=== PATIENT | female | born 1990 | race Two or more races ===

== ENCOUNTER 2018-12-01 16:14 | Inpatient (IN) | payer SELFPAY ==
[~2018-12-01] VITALS: Ht 160 cm; Wt 54.6 kg
[2018-12-01] MEDS ORDERED: ONDANSETRON PF 4 MG/2 ML VIAL. IV ONE ×2 (16:30→18:15)
[2018-12-01] MEDS ORDERED: IV NORMAL SALINE 1000ML BAG 1,000 ML IV SCH (16:30)
[2018-12-01 16:44] LABS: BASO # 0.1 x10^3/uL (0.0-0.2); BASO % 1 % (0-3); EOS # 0.1 x10^3/uL (0.0-0.7); EOS % 1 % (0-3); HEMATOCRIT 43.8 % (36.0-47.0); LYMPH # 3.9 x10^3/uL (1.0-4.8); LYMPH % 42 % (24-48); MEAN CORPUSCULAR HEMOGLOBIN 33 pg (25-35); MEAN CORPUSCULAR HGB CONC 34 g/dL (31-37); MEAN CORPUSCULAR VOLUME 95 fL (79-100); MONO # 0.7 x10^3/uL (0.0-1.1); MONO % 8 % (0-9); NEUT # 4.6 x10^3uL (1.8-7.7); NEUT % 49 % (31-73); PLATELET COUNT 282 x10^3/uL (140-400); RED CELL DISTRIBUTION WIDTH 13.2 % (11.5-14.5); WHITE BLOOD COUNT 9.4 x10^3/uL (4.0-11.0)
[2018-12-01 16:52] LABS: CREATININE 0.5 mg/dL (0.6-1.0); GFR 145.9
[2018-12-01 16:54] LABS: PROTHROMBIN TIME PATIENT 12.3 SEC (11.7-14.0)
[2018-12-01 16:58] LABS: ALBUMIN 4.2 g/dL (3.4-5.0); DIRECT BILIRUBIN 0.3 mg/dL (0.0-0.2); TOTAL PROTEIN 7.7 g/dL (6.4-8.2)
[2018-12-01 17:03] LABS: ACETAMIN < 2 mcg/ml (10-30); ETHANOL 310 mg/dL (0-10); SALIC < 2.8 mg/dL (2.8-20.0)
[2018-12-01 17:05] LABS: BILIRUBIN,URINE NEGATIVE (NEG); CLARITY,URINE CLEAR; NITRITE,URINE NEGATIVE (NEG); PROTEIN,URINE NEGATIVE (NEG-TRACE); UROBILINOGEN,URINE 0.2 mg/dL (0.2 mg/dL)
[2018-12-01 17:08] LABS: AMPHETAMINE/METHAMPHETAMINE NEG (NEG); BARBITURATES NEG (NEG); BENZODIAZEPINES NEG (NEG); CANNABINOIDS NEG (NEG); COCAINE NEG (NEG); METHADONE NEG (NEG); OPIATES NEG (NEG); PHENCYCLIDINE NEG (NEG)
[2018-12-01 17:09] LABS: COLOR,URINE STRAW
[2018-12-01 17:11] LABS: BACTERIA,URINE FEW /HPF (0-FEW); RBC,URINE RARE /HPF (0-2); SQUAMOUS EPITHELIAL CELL,UR MOD /LPF; WBC,URINE 0 /HPF (0-4)
[2018-12-01] MEDS ORDERED: ONDANSETRON ODT 4 MG TAB.RAPDIS. PO ONE (18:15)
--- NOTE | 2018-12-01 18:15 | PHYS DOC ---
Past Medical History Past Medical History: Anxiety, Arthritis, Bipolar, Depression, Schizophrenia (ALIYA PERKINS MD) Past Surgical History: No Surgical History (ALIYA PERKINS MD) Alcohol Use: Occasionally Drug Use: None (ALIYA PERKINS MD) Adult General Chief Complaint Chief Complaint: CHEST PAIN HPI HPI Patient is a 28 year old female who is in by EMS because of alcohol intoxication and chest pain. Patient is intoxicated and unable to give history and complaining of chest pain frequently. (ALIYA PERKINS MD) Review of Systems Review of Systems Unable to obtain because of alcohol intoxication (ALIYA PERKINS MD) Current Medications Current Medications Current Medications Medications (Trade) Dose Ordered Sig/Hannah Start Time Stop Time Status Last Admin Dose Admin Clonazepam (KlonoPIN) 1 mg 1X ONCE 12/01/18 21:30 12/01/18 21:31 Famotidine (Pepcid Vial) 20 mg 1X ONCE 12/01/18 18:45 12/01/18 18:46 DC 12/01/18 18:21 20 MG Ketorolac Tromethamine (Toradol 15mg Vial) 15 mg 1X ONCE 12/01/18 19:45 12/01/18 19:46 DC 12/01/18 19:13 15 MG Lorazepam (Ativan) 1 mg 1X ONCE 12/01/18 20:45 12/01/18 20:46 DC 12/01/18 20:29 1 MG Multi-Ingredient Mouthwash/Gargle (Gi Cocktail) 20 ml 1X ONCE 12/01/18 20:30 12/01/18 20:31 DC 12/01/18 20:16 20 ML Ondansetron HCl (Zofran Odt) 4 mg 1X ONCE 12/01/18 18:15 12/01/18 18:16 DC Ondansetron HCl (Zofran) 4 mg 1X ONCE 12/01/18 18:15 12/01/18 18:16 DC 12/01/18 18:03 4 MG Potassium Chloride (KCl Oral Soln) 40 meq 1X ONCE 12/01/18 20:45 12/01/18 20:46 DC 12/01/18 20:31 40 MEQ Sodium Chloride 1,000 ml @ 1,000 mls/hr Q1H 12/01/18 16:30 12/01/18 17:29 DC 12/01/18 16:54 1,000 MLS/HR (KATHARINE CARTER MD) Allergies Allergies Allergies Coded Allergies Type Severity Reaction Last Updated Verified No Known Drug Allergies 12/01/18 No (KATHARINE CARTER MD) Physical Exam Physical Exam Constitutional: Well nourished, moderate distress, non-toxic appearance, intoxicated, strong smell of alcohol on breath, agitated and uncooperative. [] HENT: Normocephalic, atraumatic Eyes: PERRLA, EOMI, conjunctiva normal, no discharge. [] Neck: Normal range of motion, no tenderness, supple, no stridor. [] Cardiovascular: Tachycardia, no murmur [] Lungs & Thorax: Bilateral breath sounds clear to auscultation [] Abdomen: Bowel sounds normal, soft, no tenderness, no masses, no pulsatile masses. [] Skin: Warm, dry, no erythema, no rash. [] Extremities: No tenderness, no cyanosis, no clubbing, ROM intact, no edema. [] Neurologic: Alert, moves all extremities, limited exam because of uncooperative and intoxicated patient Psychologic: Affect is agitated (ALIYA PERKINS MD) Current Patient Data Vital Signs Vital Signs Date Time Temp Pulse Resp B/P (MAP) Pulse Ox O2 Delivery O2 Flow Rate FiO2 12/01/18 18:18 96 18 114/74 (87) 96 Room Air 12/01/18 16:14 98.1 98.1 (KATHARINE CARTER MD) Lab Values Laboratory Tests Test 12/01/18 16:31 12/01/18 16:45 12/01/18 16:56 White Blood Count 9.4 x10^3/uL (4.0-11.0) Red Blood Count 4.60 x10^6/uL (3.50-5.40) Hemoglobin 15.0 g/dL (12.0-15.5) Hematocrit 43.8 % (36.0-47.0) Mean Corpuscular Volume 95 fL (79-100) Mean Corpuscular Hemoglobin 33 pg (25-35) Mean Corpuscular Hemoglobin Concent 34 g/dL (31-37) Red Cell Distribution Width 13.2 % (11.5-14.5) Platelet Count 282 x10^3/uL (140-400) Neutrophils (%) (Auto) 49 % (31-73) Lymphocytes (%) (Auto) 42 % (24-48) Monocytes (%) (Auto) 8 % (0-9) Eosinophils (%) (Auto) 1 % (0-3) Basophils (%) (Auto) 1 % (0-3) Neutrophils # (Auto) 4.6 x10^3uL (1.8-7.7) Lymphocytes # (Auto) 3.9 x10^3/uL (1.0-4.8) Monocytes # (Auto) 0.7 x10^3/uL (0.0-1.1) Eosinophils # (Auto) 0.1 x10^3/uL (0.0-0.7) Basophils # (Auto) 0.1 x10^3/uL (0.0-0.2) Prothrombin Time 12.3 SEC (11.7-14.0) Prothrombin Time INR 0.9 (0.8-1.1) Sodium Level 138 mmol/L (136-145) Potassium Level 3.0 mmol/L (3.5-5.1) L Chloride Level 98 mmol/L (98-107) Carbon Dioxide Level 24 mmol/L (21-32) Anion Gap 16 (6-14) H Blood Urea Nitrogen 10 mg/dL (7-20) Creatinine 0.5 mg/dL (0.6-1.0) L Estimated GFR (Cockcroft-Gault) 145.9 Glucose Level 158 mg/dL (70-99) H Calcium Level 9.0 mg/dL (8.5-10.1) Magnesium Level 2.0 mg/dL (1.8-2.4) Total Bilirubin 1.0 mg/dL (0.2-1.0) Direct Bilirubin 0.3 mg/dL (0.0-0.2) H Aspartate Amino Transferase (AST) 37 U/L (15-37) Alanine Aminotransferase (ALT) 32 U/L (14-59) Alkaline Phosphatase 87 U/L (46-116) Creatine Kinase 62 U/L (26-192) Troponin I Quantitative < 0.017 ng/mL (0.000-0.055) Total Protein 7.7 g/dL (6.4-8.2) Albumin 4.2 g/dL (3.4-5.0) Lipase 123 U/L (73-393) Salicylates Level < 2.8 mg/dL (2.8-20.0) L Salicylate Last Dose Date Unk Salicylate Last Dose Time Unk Acetaminophen Level < 2 mcg/ml (10-30) L Acetaminophen Last Dose Date Unk Acetaminophen Last Dose Time Unk Ethyl Alcohol Level 310 mg/dL (0-10) H Urine Collection Type Void Urine Color Straw Urine Clarity Clear Urine pH 7.0 Urine Specific [place] <=1.005 Urine Protein Negative mg/dL (NEG-TRACE) Urine Glucose (UA) Negative mg/dL (NEG) Urine Ketones (Stick) Negative mg/dL (NEG) Urine Blood Trace (NEG) Urine Nitrite Negative (NEG) Urine Bilirubin Negative (NEG) Urine Urobilinogen Dipstick 0.2 mg/dL (0.2 mg/dL) Urine Leukocyte Esterase Negative (NEG) Urine RBC Rare /HPF (0-2) Urine WBC 0 /HPF (0-4) Urine Squamous Epithelial Cells Mod /LPF Urine Bacteria Few /HPF (0-FEW) Urine Opiates Screen Neg (NEG) Urine Methadone Screen Neg (NEG) Urine Barbiturates Neg (NEG) Urine Phencyclidine Screen Neg (NEG) Urine Amphetamine/Methamphetamine Neg (NEG) Urine Benzodiazepines Screen Neg (NEG) Urine Cocaine Screen Neg (NEG) Urine Cannabinoids Screen Neg (NEG) Urine Ethyl Alcohol Pos (NEG) POC Urine HCG, Qualitative Hcg negative (Negative) Laboratory Tests 12/01/18 16:31 Laboratory Tests 12/01/18 16:31 (KATHARINE CARTER MD) EKG EKG EKG interpreted by me. EKG at 1617 shows sinus tachycardia at rate of 122, no acute ST and T-wave abnormalities. (ALIYA PERKINS MD) Radiology/Procedures Radiology/Procedures [] (ALIYA PERKINS MD) Course & Med Decision Making Course & Med Decision Making Pertinent Labs reviewed. (See chart for details) Evaluation of patient in ER showed 28-year-old male patient brought in because of chest pain and alcohol intoxication. Patient was intoxicated and agitated and uncooperative. I offered the patient hospitalization because of blood alcohol of more than 300 and patient refused. Plan to keep patient in ER for sobering the Sign out given to Dr. Carter at 1800 for further evaluation and final disposition. Discussed current findings and plan with patient and family, who acknowledge understanding and agreement. (ALIYA PERKINS MD) Course & Med Decision Making RAUL: I OBSERVED PT FOR SEVERAL HOURS. INITAILLY SHE DIDNT WANT TO STAY NOTED ABOVE. WAS BECOMING MORE TREMULOUS HR UP TO 120 AT TIMES, SHE REPORTS A HISTORY OF ALCHOOL WITHDRAWAL AND SEIZURES IN THE PAST. I BELIEVE SHE MAY BE HAVING SOME ETOH W/D . SHE DDI FINALLY AGREE TO STAY IN HOSPITAL . ADMIT TO CHAO, ORDERS FOR CIWA PROTOCOL ETC. RE: CHEST PAIN, BURNING PAIN ABDOMEN NONTENDER, GIVEN GI COCKTAIL, TORADOL AND ASPIRIN. CXR/TROP NEG. EKG NONSPECIFIC LIKELY RELATED TO HYPOKALEMIA NO DEFINITE ISCHEMIA IDENTIFIED. PT IS LOW RISK. (KATHARINE CARTER MD) Dragon Disclaimer Dragon Disclaimer This electronic medical record was generated, in whole or in part, using a voice recognition dictation system. (ALIYA PERKINS MD) Departure Departure Impression: Primary Impression: Alcohol intoxication Additional Impressions: Chest pain Hypokalemia Disposition: 09 ADMITTED INPATIENT Admitting Physician: Dayne Heck (KATHARINE CARTER MD) Condition: STABLE Referrals: NO PCP (PCP) Problem Qualifiers Primary Impression: Alcohol intoxication Complication of substance-induced condition: with unspecified complication Qualified Codes: F10.929 - Alcohol use, unspecified with intoxication, unspecified Additional Impressions: Chest pain Chest pain type: unspecified Qualified Codes: R07.9 - Chest pain, unspecified ALIYA PERKINS MD Dec 01, 2018 18:15 KATHARINE CARTER MD Dec 01, 2018 21:29
[2018-12-01] MEDS ORDERED: FAMOTIDINE 20 MG/2 ML VIAL IVP ONE (18:45)
[2018-12-01] MEDS ORDERED: KETOROLAC 15 MG/ML VIAL. IV ONE (19:45)
[2018-12-01] MEDS ORDERED: LIDO:MAALOX 1:1 20 ML SINGLE DOSE. SWSW ONE (20:30)
[2018-12-01] MEDS ORDERED: POTASSIUM CHLORIDE 20 MEQ/15 ML ORAL LIQUID. PO ONE (20:45)
[2018-12-01] MEDS ORDERED: diphenhydrAMINE 50 MG/ML VIAL IVP PRN (21:30)
[2018-12-01] MEDS ORDERED: clonazePAM 0.5 MG TABLET PO ONE (21:30)
[2018-12-01] MEDS ORDERED: cloNIDine HCL 0.1 MG TABLET PO PRN (21:30)
[2018-12-01] MEDS: MULTIVIT INFUSN,ADULT 4,VIT K 10 ML, THIAMINE INJ 100 MG, FOLIC ACID INJ 1 MG in IV NOR... IV SCH (21:48)
[2018-12-01 23:47] VITALS: BP 120/79
[2018-12-02] MEDS: MULTIVIT INFUSN,ADULT 4,VIT K 10 ML, THIAMINE INJ 100 MG, FOLIC ACID INJ 1 MG in IV NOR... IV SCH (00:30)
[2018-12-02] MEDS: HYDROcodone/APAP 5/325MG 1 TAB TABLET PO PRN ×2 (00:30→07:36)
[2018-12-02 03:10] VITALS: BP 127/83
[2018-12-02] MEDS: ONDANSETRON PF 4 MG/2 ML VIAL. IV PRN ×3 (06:27→14:19)
[2018-12-02 07:00] VITALS: BP 129/78
--- NOTE | 2018-12-02 07:38 | EKG ---
[facility] [address] [place] [address] Test Date: 2018-12-01 Test Time: 16:17:35 Pat Name: MOSES HINKLE Department: Room: 261 1 Gender: F Chief Writer: : 1990 Requested By: ALIYA PERKINS Order Number: [id number] Reading MD: Mehul Paul MD Measurements Intervals Bailey Rate: 122 P: AK: QRS: 38 QRSD: 86 T: 66 QT: 358 QTc: [address] NON-SPECIFIC ST/T CHANGES Electronically Signed On 12-06-2018 14:50:09 CDT by Mehul Paul MD
--- NOTE | 2018-12-02 08:28 | RAD ---
AP portable chest radiograph 12/01/2018 Clinical History: Chest pain. An AP erect portable digital radiograph of the chest was obtained. No previous studies are available for comparison. The cardiac and mediastinal silhouettes are within normal limits in size and configuration. No acute pulmonary infiltrate is seen. No pleural effusion or pneumothorax is noted. Minimal S-shaped curvature of the thoracolumbar spine is seen. IMPRESSION: No acute abnormality is seen. Electronically signed by: Jose Alberto Estrada MD (12/02/2018 8:25 AM) [id number]
[2018-12-02] MEDS ORDERED: FOLIC ACID 1 MG TABLET. PO SCH (09:00)
[2018-12-02] MEDS ORDERED: MULTIVITAMIN with MINERAL TABLET. PO SCH (09:00)
[2018-12-02] MEDS ORDERED: THIAMINE IM 200 MG/2 ML VIAL. IM SCH (09:00)
[2018-12-02] MEDS ORDERED: TIZA4TAB PO (09:06)
[2018-12-02] MEDS ORDERED: TRAM50TA PO (09:06)
[2018-12-02] MEDS ORDERED: CLON1TAB11 PO (09:06)
[2018-12-02] MEDS ORDERED: QUET100T4 PO ×2 (09:06)
[2018-12-02] MEDS ORDERED: chlordiazePOXIDE HCL 25 MG CAPSULE PO PRN (09:30)
[2018-12-02] MEDS ORDERED: traMADol 50 MG TABLET PO PRN (09:30)
--- NOTE | 2018-12-02 09:53 | NUR ---
report given to ANG Ridley and ANG Tony
[2018-12-02] MEDS ORDERED: POTASSIUM CHLORIDE 20 MEQ TABLET.ER. PO ONE (10:00)
[2018-12-02] MEDS: QUEtiapine 100 MG TABLET. PO SCH ×3 (10:38→20:13)
[2018-12-02] MEDS: clonazePAM 1 MG TABLET PO SCH ×3 (10:38→20:13)
[2018-12-02 10:40] LABS: ALBUMIN 3.8 g/dL (3.4-5.0); ALBUMIN/GLOBULIN RATIO 1.4 (1.0-1.7); CREATININE 0.7 mg/dL (0.6-1.0); GFR 98.9; POTASSIUM 3.7 mmol/L (3.5-5.1); TOTAL BILIRUBIN 1.3 mg/dL (0.2-1.0); TOTAL PROTEIN 6.6 g/dL (6.4-8.2)
[2018-12-02 11:06] VITALS: BP 138/86
[2018-12-02] MEDS ORDERED: ADENOSINE 6 MG/2 ML VIAL. IV ONE (11:45)
--- NOTE | 2018-12-02 11:54 | PDOC1 ---
History and Physical Date of Admission Date of Admission DATE: 12/02/18 TIME: 11:50 Identification/Chief Complaint Chief Complaint Alcohol intoxication sxs Source Source: Caregiver, Chart review, Patient History of Present Illness History of Present Illness Poor historian, 28-year-old female can speak Scottish, alcohol intoxication symptoms, still nauseated and has not eaten. Potassium 3.0, after replacement came up to 3.7 Alcohol level 310 with negative UDS Now SVT and sinus tachycardia as high as 170s Asking her to bear down to came down to 130s-adenosine on standby No home meds, no previous cardiac history No family at bedside, the rest of history scarce Plan consults cards,r e check mag, ca, trop Adenosine standby Keep tele Past Medical History Cardiovascular: No pertinent hx Pulmonary: No pertinent hx GI: No pertinent hx Heme/Onc: No pertinent hx Hepatobiliary: No pertinent hx Psych: No pertinent hx Rheumatologic: No pertinent hx Infectious disease: No pertinent hx ENT: No pertinent hx Renal/: No pertinent hx Endocrine: No pertinent hx Dermatology: No pertinent hx Past Surgical History Past Surgical History: No pertinent history Family History Family History: Family History Unknown Social History Smoke: No ALCOHOL: heavy Drugs: None Current Problem List Problem List Problems Medical Problems: (1) Alcohol intoxication Status: Acute (2) Chest pain Status: Acute (3) Hypokalemia Status: Acute Current Medications Current Medications Current Medications Sodium Chloride 1,000 ml @ 1,000 mls/hr Q1H IV Last administered on 12/01/18at 16:54; Start 12/01/18 at 16:30; Stop 12/01/18 at 17:29; Status DC Ondansetron HCl (Zofran) 4 mg 1X ONCE IV Last administered on 12/01/18at 16:54; Start 12/01/18 at 16:30; Stop 12/01/18 at 16:31; Status DC Ondansetron HCl (Zofran Odt) 4 mg 1X ONCE PO Last administered on 12/01/18at 21:45; Start 12/01/18 at 18:15; Stop 12/01/18 at 18:16; Status DC Ondansetron HCl (Zofran) 4 mg 1X ONCE IV Last administered on 12/01/18at 18:03; Start 12/01/18 at 18:15; Stop 12/01/18 at 18:16; Status DC Famotidine (Pepcid Vial) 20 mg 1X ONCE IVP Last administered on 12/01/18at 18:21; Start 12/01/18 at 18:45; Stop 12/01/18 at 18:46; Status DC Ketorolac Tromethamine (Toradol 15mg Vial) 15 mg 1X ONCE IV Last administered on 12/01/18at 19:13; Start 12/01/18 at 19:45; Stop 12/01/18 at 19:46; Status DC Multi-Ingredient Mouthwash/Gargle (Gi Cocktail) 20 ml 1X ONCE SWSW Last administered on 12/01/18at 20:16; Start 12/01/18 at 20:30; Stop 12/01/18 at 20:31; Status DC Potassium Chloride (KCl Oral Soln) 40 meq 1X ONCE PO Last administered on 12/01/18at 20:31; Start 12/01/18 at 20:45; Stop 12/01/18 at 20:46; Status DC Lorazepam (Ativan) 1 mg 1X ONCE IV Last administered on 12/01/18at 20:29; Start 12/01/18 at 20:45; Stop 12/01/18 at 20:46; Status DC Clonazepam (KlonoPIN) 1 mg 1X ONCE PO Last administered on 12/01/18at 21:45; Start 12/01/18 at 21:30; Stop 12/01/18 at 21:31; Status DC Ondansetron HCl (Zofran) 4 mg PRN Q8HRS PRN IV NAUSEA/VOMITING Last administered on 12/02/18at 10:38; Start 12/01/18 at 21:30; Stop 12/02/18 at 11:49; Status DC Multivitamins 10 ml/Thiamine HCl 100 mg/Folic Acid 1 mg/Sodium Chloride 1,011.2 ml @ 100 mls/ hr DAILY IV Last administered on 12/02/18at 00:30; Start 12/01/18 at 22:00; Stop 12/05/18 at 19:07 Multivitamins (Thera M Plus) 1 tab DAILY PO ; Start 12/02/18 at 09:00; Status UNV Folic Acid (Folic Acid) 1 mg DAILY PO ; Start 12/02/18 at 09:00; Status UNV Thiamine HCl 100 mg DAILY IM ; Start 12/02/18 at 09:00; Stop 12/07/18 at 08:59; Status UNV Lorazepam (Ativan) 2 mg PRN Q1HR PRN IV For CIWA 8-14 Last administered on 12/02/18at 10:39; Start 12/01/18 at 21:30 Lorazepam (Ativan) 4 mg PRN Q1HR PRN IV For CIWA 15 or greater; Start 12/01/18 at 21:30 Diphenhydramine HCl (Benadryl) 25 mg PRN Q15MIN PRN IVP EPS symptoms 2'Haldol admin; Start 12/01/18 at 21:30 Clonidine HCl (Catapres) 0.1 mg PRN Q1HR PRN PO SBP > 180 or DBP > 100, MRX3; Start 12/01/18 at 21:30 Acetaminophen/ Hydrocodone Bitart (Lortab 5/325) 1 tab PRN Q6HRS PRN PO PAIN Last administered on 12/02/18at 07:36; Start 12/02/18 at 00:30 Chlordiazepoxide (Librium) 25 mg PRN Q6HRS PRN PO ANXIETY / AGITATION; Start 12/02/18 at 09:30 Clonazepam (KlonoPIN) 1 mg TID PO Last administered on 12/02/18at 10:38; Start 12/02/18 at 10:00 Tramadol HCl (Ultram) 100 mg PRN TID PRN PO MILD - MODERATE PAIN; Start 12/02/18 at 09:30 Quetiapine Fumarate (SEROquel) 150 mg BID@0900,1200 PO Last administered on 12/02/18at 10:38; Start 12/02/18 at 10:00 Quetiapine Fumarate (SEROquel) 500 mg QHS PO ; Start 12/02/18 at 21:00 Tizanidine HCl (Zanaflex) 4 mg PRN Q8HRS PRN PO MUSCLE SPASMS; Start 12/02/18 at 09:45 Potassium Chloride (Klor-Con) 20 meq 1X ONCE PO Last administered on 12/02/18at 10:38; Start 12/02/18 at 10:00; Stop 12/02/18 at 10:01; Status DC Adenosine (Adenocard) 6 mg 1X ONCE IV ; Start 12/02/18 at 11:45; Stop 12/02/18 at 11:46; Status DC Ondansetron HCl (Zofran) 4 mg PRN Q6HRS PRN IV NAUSEA/VOMITING; Start 12/02/18 at 12:00; Status UNV Active Scripts Active Reported Tizanidine Hcl 4 Mg Tablet 4 Mg PO TID PRN Tramadol Hcl 50 Mg Tablet 100 Mg PO TID PRN Clonazepam 1 Mg Tablet 1 Tab PO TID Seroquel (Quetiapine Fumarate) 100 Mg Tablet 5 Tab PO QHS Seroquel (Quetiapine Fumarate) 100 Mg Tablet 1.5 Tab PO 08 AND NOON Allergies Allergies: Coded Allergies: No Known Drug Allergies (Unverified , 12/01/18) ROS Review of System Limited, she feels unwell Physical Exam General: Oriented X3, Cooperative, No acute distress HEENT: Atraumatic, PERRLA Lungs: Clear to auscultation Heart: RRR, no thrills, no rubs, no gallops, murmurs, other (sinus tachycardia) Cardiovascular: S1, S2 Breasts: Normal Abdomen: Normal bowel sounds, Soft, No tenderness, No hepatosplenomegaly, No masses Rectal Exam: not examined PELVIC: Nml ext genitalia Extremities: No clubbing, No cyanosis, No edema, Normal pulses, No tenderness/s welling Skin: No rashes Neuro: Normal gait, Normal speech, Strength at 5/5 X4 ext, Normal tone, Sensation intact, Cranial nerves 3-12 NL, Reflexes 2+ Psych/Mental Status: Mental status NL, Mood NL Vitals Vitals Vital Signs Date Time Temp Pulse Resp B/P (MAP) Pulse Ox O2 Delivery O2 Flow Rate FiO2 12/02/18 11:06 98.5 106 16 138/86 (103) 100 Room Air 98.5 Labs Labs Laboratory Tests Test 12/01/18 16:31 12/01/18 16:45 12/01/18 16:56 12/02/18 10:00 White Blood Count 9.4 x10^3/uL (4.0-11.0) Red Blood Count 4.60 x10^6/uL (3.50-5.40) Hemoglobin 15.0 g/dL (12.0-15.5) Hematocrit 43.8 % (36.0-47.0) Mean Corpuscular Volume 95 fL (79-100) Mean Corpuscular Hemoglobin 33 pg (25-35) Mean Corpuscular Hemoglobin Concent 34 g/dL (31-37) Red Cell Distribution Width 13.2 % (11.5-14.5) Platelet Count 282 x10^3/uL (140-400) Neutrophils (%) (Auto) 49 % (31-73) Lymphocytes (%) (Auto) 42 % (24-48) Monocytes (%) (Auto) 8 % (0-9) Eosinophils (%) (Auto) 1 % (0-3) Basophils (%) (Auto) 1 % (0-3) Neutrophils # (Auto) 4.6 x10^3uL (1.8-7.7) Lymphocytes # (Auto) 3.9 x10^3/uL (1.0-4.8) Monocytes # (Auto) 0.7 x10^3/uL (0.0-1.1) Eosinophils # (Auto) 0.1 x10^3/uL (0.0-0.7) Basophils # (Auto) 0.1 x10^3/uL (0.0-0.2) Prothrombin Time 12.3 SEC (11.7-14.0) Prothromb Time International Ratio 0.9 (0.8-1.1) Sodium Level 138 mmol/L (136-145) 140 mmol/L (136-145) Potassium Level 3.0 mmol/L (3.5-5.1) 3.7 mmol/L (3.5-5.1) Chloride Level 98 mmol/L (98-107) 105 mmol/L (98-107) Carbon Dioxide Level 24 mmol/L (21-32) 25 mmol/L (21-32) Anion Gap 16 (6-14) 10 (6-14) Blood Urea Nitrogen 10 mg/dL (7-20) 9 mg/dL (7-20) Creatinine 0.5 mg/dL (0.6-1.0) 0.7 mg/dL (0.6-1.0) Estimated GFR (Cockcroft-Gault) 145.9 98.9 Glucose Level 158 mg/dL (70-99) 93 mg/dL (70-99) Calcium Level 9.0 mg/dL (8.5-10.1) 8.0 mg/dL (8.5-10.1) Magnesium Level 2.0 mg/dL (1.8-2.4) Total Bilirubin 1.0 mg/dL (0.2-1.0) 1.3 mg/dL (0.2-1.0) Direct Bilirubin 0.3 mg/dL (0.0-0.2) Aspartate Amino Transf (AST/SGOT) 37 U/L (15-37) 29 U/L (15-37) Alanine Aminotransferase (ALT/SGPT) 32 U/L (14-59) 27 U/L (14-59) Alkaline Phosphatase 87 U/L (46-116) 72 U/L (46-116) Creatine Kinase 62 U/L (26-192) Troponin I Quantitative < 0.017 ng/mL (0.000-0.055) < 0.017 ng/mL (0.000-0.055) Total Protein 7.7 g/dL (6.4-8.2) 6.6 g/dL (6.4-8.2) Albumin 4.2 g/dL (3.4-5.0) 3.8 g/dL (3.4-5.0) Lipase 123 U/L (73-393) Salicylates Level < 2.8 mg/dL (2.8-20.0) Salicylate Last Dose Date Unk Salicylate Last Dose Time Unk Acetaminophen Level < 2 mcg/ml (10-30) Acetaminophen Last Dose Date Unk Acetaminophen Last Dose Time Unk Ethyl Alcohol Level 310 mg/dL (0-10) Urine Collection Type Void Urine Color Straw Urine Clarity Clear Urine pH 7.0 Urine Specific [place] <=1.005 Urine Protein Negative mg/dL (NEG-TRACE) Urine Glucose (UA) Negative mg/dL (NEG) Urine Ketones (Stick) Negative mg/dL (NEG) Urine Blood Trace (NEG) Urine Nitrite Negative (NEG) Urine Bilirubin Negative (NEG) Urine Urobilinogen Dipstick 0.2 mg/dL (0.2 mg/dL) Urine Leukocyte Esterase Negative (NEG) Urine RBC Rare /HPF (0-2) Urine WBC 0 /HPF (0-4) Urine Squamous Epithelial Cells Mod /LPF Urine Bacteria Few /HPF (0-FEW) Urine Opiates Screen Neg (NEG) Urine Methadone Screen Neg (NEG) Urine Barbiturates Neg (NEG) Urine Phencyclidine Screen Neg (NEG) Urine Amphetamine/Methamphetamine Neg (NEG) Urine Benzodiazepines Screen Neg (NEG) Urine Cocaine Screen Neg (NEG) Urine Cannabinoids Screen Neg (NEG) Urine Ethyl Alcohol Pos (NEG) Bedside Urine HCG, Qualitative Hcg negative (Negative) BUN/Creatinine Ratio 13 (6-20) Albumin/Globulin Ratio 1.4 (1.0-1.7) Laboratory Tests Test 12/01/18 16:31 12/01/18 16:45 12/01/18 16:56 12/02/18 10:00 White Blood Count 9.4 x10^3/uL (4.0-11.0) Red Blood Count 4.60 x10^6/uL (3.50-5.40) Hemoglobin 15.0 g/dL (12.0-15.5) Hematocrit 43.8 % (36.0-47.0) Mean Corpuscular Volume 95 fL (79-100) Mean Corpuscular Hemoglobin 33 pg (25-35) Mean Corpuscular Hemoglobin Concent 34 g/dL (31-37) Red Cell Distribution Width 13.2 % (11.5-14.5) Platelet Count 282 x10^3/uL (140-400) Neutrophils (%) (Auto) 49 % (31-73) Lymphocytes (%) (Auto) 42 % (24-48) Monocytes (%) (Auto) 8 % (0-9) Eosinophils (%) (Auto) 1 % (0-3) Basophils (%) (Auto) 1 % (0-3) Neutrophils # (Auto) 4.6 x10^3uL (1.8-7.7) Lymphocytes # (Auto) 3.9 x10^3/uL (1.0-4.8) Monocytes # (Auto) 0.7 x10^3/uL (0.0-1.1) Eosinophils # (Auto) 0.1 x10^3/uL (0.0-0.7) Basophils # (Auto) 0.1 x10^3/uL (0.0-0.2) Prothrombin Time 12.3 SEC (11.7-14.0) Prothromb Time International Ratio 0.9 (0.8-1.1) Sodium Level 138 mmol/L (136-145) 140 mmol/L (136-145) Potassium Level 3.0 mmol/L (3.5-5.1) 3.7 mmol/L (3.5-5.1) Chloride Level 98 mmol/L (98-107) 105 mmol/L (98-107) Carbon Dioxide Level 24 mmol/L (21-32) 25 mmol/L (21-32) Anion Gap 16 (6-14) 10 (6-14) Blood Urea Nitrogen 10 mg/dL (7-20) 9 mg/dL (7-20) Creatinine 0.5 mg/dL (0.6-1.0) 0.7 mg/dL (0.6-1.0) Estimated GFR (Cockcroft-Gault) 145.9 98.9 Glucose Level 158 mg/dL (70-99) 93 mg/dL (70-99) Calcium Level 9.0 mg/dL (8.5-10.1) 8.0 mg/dL (8.5-10.1) Magnesium Level 2.0 mg/dL (1.8-2.4) Total Bilirubin 1.0 mg/dL (0.2-1.0) 1.3 mg/dL (0.2-1.0) Direct Bilirubin 0.3 mg/dL (0.0-0.2) Aspartate Amino Transf (AST/SGOT) 37 U/L (15-37) 29 U/L (15-37) Alanine Aminotransferase (ALT/SGPT) 32 U/L (14-59) 27 U/L (14-59) Alkaline Phosphatase 87 U/L (46-116) 72 U/L (46-116) Creatine Kinase 62 U/L (26-192) Troponin I Quantitative < 0.017 ng/mL (0.000-0.055) < 0.017 ng/mL (0.000-0.055) Total Protein 7.7 g/dL (6.4-8.2) 6.6 g/dL (6.4-8.2) Albumin 4.2 g/dL (3.4-5.0) 3.8 g/dL (3.4-5.0) Lipase 123 U/L (73-393) Salicylates Level < 2.8 mg/dL (2.8-20.0) Salicylate Last Dose Date Unk Salicylate Last Dose Time Unk Acetaminophen Level < 2 mcg/ml (10-30) Acetaminophen Last Dose Date Unk Acetaminophen Last Dose Time Unk Ethyl Alcohol Level 310 mg/dL (0-10) Urine Collection Type Void Urine Color Straw Urine Clarity Clear Urine pH 7.0 Urine Specific [place] <=1.005 Urine Protein Negative mg/dL (NEG-TRACE) Urine Glucose (UA) Negative mg/dL (NEG) Urine Ketones (Stick) Negative mg/dL (NEG) Urine Blood Trace (NEG) Urine Nitrite Negative (NEG) Urine Bilirubin Negative (NEG) Urine Urobilinogen Dipstick 0.2 mg/dL (0.2 mg/dL) Urine Leukocyte Esterase Negative (NEG) Urine RBC Rare /HPF (0-2) Urine WBC 0 /HPF (0-4) Urine Squamous Epithelial Cells Mod /LPF Urine Bacteria Few /HPF (0-FEW) Urine Opiates Screen Neg (NEG) Urine Methadone Screen Neg (NEG) Urine Barbiturates Neg (NEG) Urine Phencyclidine Screen Neg (NEG) Urine Amphetamine/Methamphetamine Neg (NEG) Urine Benzodiazepines Screen Neg (NEG) Urine Cocaine Screen Neg (NEG) Urine Cannabinoids Screen Neg (NEG) Urine Ethyl Alcohol Pos (NEG) Bedside Urine HCG, Qualitative Hcg negative (Negative) BUN/Creatinine Ratio 13 (6-20) Albumin/Globulin Ratio 1.4 (1.0-1.7) VTE Prophylaxis Ordered VTE Prophylaxis Devices: Yes VTE Pharmacological Prophylaxi: Yes Assessment/Plan Assessment/Plan SVT, sinus tachycardia Alcohol intoxication-310 levels Chest pain Hypokalemia Nausea/emesis Plan: CVC admit replace K, recheck other electrolytes Cards consult [facility] protocol Keep telemetry Further recs pending course VAgal maneuvers, Adenosine standby dw CVC Rns KRISTOPHER MA MD Dec 02, 2018 11:54
--- NOTE | 2018-12-02 12:44 | NUR ---
SS following for discharge planning. SS reviewed chart. Pt is from home and currently on room air. SS received referral for education regarding alcohol abuse. Pt admitted to hospital with high alcohol level. SS contacted PAT team and made referral for assessment and evaluation. PAT to visit with pt today.
[2018-12-02] MEDS ORDERED: MORPHINE SULFATE 2 MG/ML VIAL. IV ONE (13:00)
[2018-12-02] MEDS: METOPROLOL TART IMMED RELEASE 25 MG TABLET. PO SCH ×2 (13:14→20:14)
--- NOTE | 2018-12-02 13:58 | PDOC2 ---
CATRINA LÓPEZ [employer]ER 12/02/18 1358: CARDIAC CONSULT DATE OF CONSULT Date of Consult DATE: 12/02/18 TIME: 13:55 REASON FOR CONSULT Reason for Consult: Tachycardia/ SVT REFERRING PHYSICIAN Referring Physician: Dr. Allen SOURCE Source: Chart review, Patient HISTORY OF PRESENT ILLNESS HISTORY OF PRESENT ILLNESS This is a 28 yo female who presented secondary to chest pain. Patient complained of pain in her central chest. Poor historian and providing very little information; eyes closed. Is nauseated and intoxicated. Last drink, "not soon enough." Has been tachycardic since arrival. Went into SVT with rate near 170. Bearing down improved HR to 130 range. Adenosine 6mg was administered with no significant improvement in HR. This was not repeated. PAST MEDICAL HISTORY Psych: Addictions (ETOH), Schizophrenia, Other (OCD) PAST SURGICAL HISTORY Past Surgical History: No pertinent history FAMILY HISTORY Family History: Family History Unknown SOCIAL HISTORY Smoke: No ALCOHOL: heavy Drugs: None CURRENT MEDICATIONS CURRENT MEDICATIONS Current Medications Medications (Trade) Dose Ordered Sig/Hannah Route PRN Reason Start Time Stop Time Status Last Admin Dose Admin Sodium Chloride 1,000 ml @ 1,000 mls/hr Q1H IV 12/01/18 16:30 12/01/18 17:29 DC 12/01/18 16:54 Ondansetron HCl (Zofran) 4 mg 1X ONCE IV 12/01/18 16:30 12/01/18 16:31 DC 12/01/18 16:54 Ondansetron HCl (Zofran Odt) 4 mg 1X ONCE PO 12/01/18 18:15 12/01/18 18:16 DC 12/01/18 21:45 Ondansetron HCl (Zofran) 4 mg 1X ONCE IV 12/01/18 18:15 12/01/18 18:16 DC 12/01/18 18:03 Famotidine (Pepcid Vial) 20 mg 1X ONCE IVP 12/01/18 18:45 12/01/18 18:46 DC 12/01/18 18:21 Ketorolac Tromethamine (Toradol 15mg Vial) 15 mg 1X ONCE IV 12/01/18 19:45 12/01/18 19:46 DC 12/01/18 19:13 Multi-Ingredient Mouthwash/Gargle (Gi Cocktail) 20 ml 1X ONCE SWSW 12/01/18 20:30 12/01/18 20:31 DC 12/01/18 20:16 Potassium Chloride (KCl Oral Soln) 40 meq 1X ONCE PO 12/01/18 20:45 12/01/18 20:46 DC 12/01/18 20:31 Lorazepam (Ativan) 1 mg 1X ONCE IV 12/01/18 20:45 12/01/18 20:46 DC 12/01/18 20:29 Clonazepam (KlonoPIN) 1 mg 1X ONCE PO 12/01/18 21:30 12/01/18 21:31 DC 12/01/18 21:45 Ondansetron HCl (Zofran) 4 mg PRN Q8HRS PRN IV NAUSEA/VOMITING 12/01/18 21:30 12/02/18 11:49 DC 12/02/18 10:38 Multivitamins 10 ml/Thiamine HCl 100 mg/Folic Acid 1 mg/Sodium Chloride 1,011.2 ml @ 100 mls/ hr DAILY IV 12/01/18 22:00 12/05/18 19:07 12/02/18 00:30 Lorazepam (Ativan) 2 mg PRN Q1HR PRN IV For CIWA 8-14 12/01/18 21:30 12/02/18 10:39 Acetaminophen/ Hydrocodone Bitart (Lortab 5/325) 1 tab PRN Q6HRS PRN PO PAIN 12/02/18 00:30 12/02/18 07:36 Clonazepam (KlonoPIN) 1 mg TID PO 12/02/18 10:00 12/02/18 10:38 Quetiapine Fumarate (SEROquel) 150 mg BID@0900,1200 PO 12/02/18 10:00 12/02/18 10:38 Potassium Chloride (Klor-Con) 20 meq 1X ONCE PO 12/02/18 10:00 12/02/18 10:01 DC 12/02/18 10:38 Adenosine (Adenocard) 6 mg 1X ONCE IV 12/02/18 11:45 12/02/18 11:46 DC 12/02/18 11:51 Morphine Sulfate (Morphine Sulfate) 2 mg 1X ONCE IV 12/02/18 13:00 12/02/18 13:01 DC 12/02/18 13:13 Metoprolol Tartrate (Lopressor) 25 mg BID PO 12/02/18 13:00 12/02/18 13:14 ALLERGIES ALLERGIES: Coded Allergies: No Known Drug Allergies (Unverified , 12/01/18) ROS Review of System 14 point ROS conducted, but very little information provided by patient. PHYSICAL EXAM General: No acute distress, Other (drowsy) HEENT: Atraumatic Lungs: Clear to auscultation Heart: Regular rate (ST- rate 110-120) Abdomen: Soft, No tenderness Extremities: No edema, Normal pulses Skin: No significant lesion Neuro: Sensation intact Psych/Mental Status: Other (unable to assess, appears intoxicated) MUSCULOSKELETAL: No deformity VITALS VITALS Vital Signs Date Time Temp Pulse Resp B/P (MAP) Pulse Ox O2 Delivery O2 Flow Rate FiO2 12/02/18 13:14 95 140/81 12/02/18 13:13 97 Room Air 12/02/18 11:06 98.5 16 98.5 LABS Lab: Laboratory Tests Test 12/01/18 16:31 12/01/18 16:45 12/01/18 16:56 12/02/18 10:00 White Blood Count 9.4 x10^3/uL (4.0-11.0) Red Blood Count 4.60 x10^6/uL (3.50-5.40) Hemoglobin 15.0 g/dL (12.0-15.5) Hematocrit 43.8 % (36.0-47.0) Mean Corpuscular Volume 95 fL (79-100) Mean Corpuscular Hemoglobin 33 pg (25-35) Mean Corpuscular Hemoglobin Concent 34 g/dL (31-37) Red Cell Distribution Width 13.2 % (11.5-14.5) Platelet Count 282 x10^3/uL (140-400) Neutrophils (%) (Auto) 49 % (31-73) Lymphocytes (%) (Auto) 42 % (24-48) Monocytes (%) (Auto) 8 % (0-9) Eosinophils (%) (Auto) 1 % (0-3) Basophils (%) (Auto) 1 % (0-3) Neutrophils # (Auto) 4.6 x10^3uL (1.8-7.7) Lymphocytes # (Auto) 3.9 x10^3/uL (1.0-4.8) Monocytes # (Auto) 0.7 x10^3/uL (0.0-1.1) Eosinophils # (Auto) 0.1 x10^3/uL (0.0-0.7) Basophils # (Auto) 0.1 x10^3/uL (0.0-0.2) Prothrombin Time 12.3 SEC (11.7-14.0) Prothromb Time International Ratio 0.9 (0.8-1.1) Sodium Level 138 mmol/L (136-145) 140 mmol/L (136-145) Potassium Level 3.0 mmol/L (3.5-5.1) 3.7 mmol/L (3.5-5.1) Chloride Level 98 mmol/L (98-107) 105 mmol/L (98-107) Carbon Dioxide Level 24 mmol/L (21-32) 25 mmol/L (21-32) Anion Gap 16 (6-14) 10 (6-14) Blood Urea Nitrogen 10 mg/dL (7-20) 9 mg/dL (7-20) Creatinine 0.5 mg/dL (0.6-1.0) 0.7 mg/dL (0.6-1.0) Estimated GFR (Cockcroft-Gault) 145.9 98.9 Glucose Level 158 mg/dL (70-99) 93 mg/dL (70-99) Calcium Level 9.0 mg/dL (8.5-10.1) 8.0 mg/dL (8.5-10.1) Magnesium Level 2.0 mg/dL (1.8-2.4) Total Bilirubin 1.0 mg/dL (0.2-1.0) 1.3 mg/dL (0.2-1.0) Direct Bilirubin 0.3 mg/dL (0.0-0.2) Aspartate Amino Transf (AST/SGOT) 37 U/L (15-37) 29 U/L (15-37) Alanine Aminotransferase (ALT/SGPT) 32 U/L (14-59) 27 U/L (14-59) Alkaline Phosphatase 87 U/L (46-116) 72 U/L (46-116) Creatine Kinase 62 U/L (26-192) Troponin I Quantitative < 0.017 ng/mL (0.000-0.055) < 0.017 ng/mL (0.000-0.055) Total Protein 7.7 g/dL (6.4-8.2) 6.6 g/dL (6.4-8.2) Albumin 4.2 g/dL (3.4-5.0) 3.8 g/dL (3.4-5.0) Lipase 123 U/L (73-393) Salicylates Level < 2.8 mg/dL (2.8-20.0) Salicylate Last Dose Date Unk Salicylate Last Dose Time Unk Acetaminophen Level < 2 mcg/ml (10-30) Acetaminophen Last Dose Date Unk Acetaminophen Last Dose Time Unk Ethyl Alcohol Level 310 mg/dL (0-10) Urine Collection Type Void Urine Color Straw Urine Clarity Clear Urine pH 7.0 Urine Specific [place] <=1.005 Urine Protein Negative mg/dL (NEG-TRACE) Urine Glucose (UA) Negative mg/dL (NEG) Urine Ketones (Stick) Negative mg/dL (NEG) Urine Blood Trace (NEG) Urine Nitrite Negative (NEG) Urine Bilirubin Negative (NEG) Urine Urobilinogen Dipstick 0.2 mg/dL (0.2 mg/dL) Urine Leukocyte Esterase Negative (NEG) Urine RBC Rare /HPF (0-2) Urine WBC 0 /HPF (0-4) Urine Squamous Epithelial Cells Mod /LPF Urine Bacteria Few /HPF (0-FEW) Urine Opiates Screen Neg (NEG) Urine Methadone Screen Neg (NEG) Urine Barbiturates Neg (NEG) Urine Phencyclidine Screen Neg (NEG) Urine Amphetamine/Methamphetamine Neg (NEG) Urine Benzodiazepines Screen Neg (NEG) Urine Cocaine Screen Neg (NEG) Urine Cannabinoids Screen Neg (NEG) Urine Ethyl Alcohol Pos (NEG) Bedside Urine HCG, Qualitative Hcg negative (Negative) BUN/Creatinine Ratio 13 (6-20) Albumin/Globulin Ratio 1.4 (1.0-1.7) Test 12/02/18 12:05 Magnesium Level 2.0 mg/dL (1.8-2.4) Troponin I Quantitative < 0.017 ng/mL (0.000-0.055) ASSESSMENT/PLAN ASSESSMENT/PLAN 1. Chest pain, atypical. AMI ruled out. ? GI 2. SVT; s/p adenosine 6mg x1. Most probably secondary to below. 3. Alcoholism/intoxication Recommendations Echo to assess LV systolic function Check TSH BB for rate control for now Consider GI cocktail if patient wakes up and pain returns. ETOH management/withdrawal as per PCP JANICE ESTEVES MD 12/02/182053: CARDIAC CONSULT ASSESSMENT/PLAN ASSESSMENT/PLAN Patient seen and examined. Agree with REGISTERED NURSE FLOAT POOL's assessment and plan. CP with atypical features and most probably GI etiology Monitor tele for any further arrhythmias and plan event monitor as outpatient Monitor for alcohol withdrawal Thank you for your consultation CATRINA LÓPEZ APRN Dec 02, 2018 13:58 JANICE ESTEVES MD Dec 02, 2018 20:54
[2018-12-02 15:09] VITALS: BP 134/86
[2018-12-02] MEDS ORDERED: LIDO:MAALOX 1:1 20 ML SINGLE DOSE. SWSW PRN (17:15)
[2018-12-02 19:59] VITALS: BP 113/75
[2018-12-02] MEDS: tiZANidine 4 MG TABLET. PO PRN (20:14)
--- NOTE | 2018-12-02 20:47 | NUR ---
Notified Doctor Alejandro patient stated she wants to leave.
[2018-12-02] MEDS ORDERED: METO25TA4 PO (20:51)
[2018-12-02] MEDS ORDERED: CHLO25CA9 PO (20:51)
[2018-12-02 22:57] VITALS: BP 100/59
[2018-12-03 02:45] VITALS: BP 114/80
[2018-12-03] MEDS: ONDANSETRON PF 4 MG/2 ML VIAL. IV PRN ×2 (05:48→08:18)
[2018-12-03 07:00] VITALS: BP 125/78
[2018-12-03] MEDS: QUEtiapine 100 MG TABLET. PO SCH ×3 (08:17→20:42)
[2018-12-03] MEDS: clonazePAM 1 MG TABLET PO SCH ×3 (08:17→20:41)
[2018-12-03] MEDS: MULTIVIT INFUSN,ADULT 4,VIT K 10 ML, THIAMINE INJ 100 MG, FOLIC ACID INJ 1 MG in IV NOR... IV SCH (08:17)
[2018-12-03] MEDS: METOPROLOL TART IMMED RELEASE 25 MG TABLET. PO SCH ×2 (08:17→21:00)
[2018-12-03 11:00] VITALS: BP 109/59
[2018-12-03] MEDS: HYDROcodone/APAP 5/325MG 1 TAB TABLET PO PRN ×2 (11:03→17:50)
--- NOTE | 2018-12-03 11:25 | PDOC ---
PROGRESS NOTES Chief Complaint Chief Complaint SVT, sinus tachycardia - resolved with vagal maneuvers Alcohol intoxication-310 levels Chest pain Hypokalemia, corrected Nausea/emesis, persistent Abd pain History of Present Illness History of Present Illness Attempted to leave AMA last night SVT resolved, heart rate 80s blood pressure good But continued emesis and abdominal pain, has not been eating for days Banana bag 3 out of 5 bags consumed Not touching food tray Plan: Consult GI CT abdomen and pelvis now Trial of GI cocktail Start some IV fluid when banana bag is not running Not ready to DC Echocardiogram ordered by cards Vitals Vitals Vital Signs Date Time Temp Pulse Resp B/P (MAP) Pulse Ox O2 Delivery O2 Flow Rate FiO2 12/03/18 11:03 18 Room Air 12/03/18 08:17 106 125/78 12/03/18 07:00 98.0 99 98.0 Physical Exam General: Cooperative, No acute distress, Other (drowsy, eyes closed, sickly) Heart: Regular rate (ST- rate 110-120) Lungs: Clear Abdomen: Normal bowel sounds, Soft, Other (tender periumbilical area) Extremities: No clubbing, No cyanosis, No edema, Normal pulses Skin: No rashes, No breakdown, No significant lesion Labs LABS Laboratory Tests Test 12/02/18 12:05 Magnesium Level 2.0 mg/dL (1.8-2.4) Troponin I Quantitative < 0.017 ng/mL (0.000-0.055) Thyroid Stimulating Hormone (TSH) 3.203 uIU/mL (0.358-3.74) Review of Systems Review of Systems Abdominal pain, nausea, emesis, the rest of ROS 14 point negative Assessment and Plan Assessmemt and Plan Problems Medical Problems: (1) Alcohol intoxication Status: Acute (2) Chest pain Status: Acute (3) Hypokalemia Status: Acute Comment Review of Relevant I have reviewed the following items nixon (where applicable) has been applied. Labs Laboratory Tests Test 12/01/18 16:31 12/01/18 16:45 12/01/18 16:56 12/02/18 10:00 White Blood Count 9.4 x10^3/uL (4.0-11.0) Red Blood Count 4.60 x10^6/uL (3.50-5.40) Hemoglobin 15.0 g/dL (12.0-15.5) Hematocrit 43.8 % (36.0-47.0) Mean Corpuscular Volume 95 fL (79-100) Mean Corpuscular Hemoglobin 33 pg (25-35) Mean Corpuscular Hemoglobin Concent 34 g/dL (31-37) Red Cell Distribution Width 13.2 % (11.5-14.5) Platelet Count 282 x10^3/uL (140-400) Neutrophils (%) (Auto) 49 % (31-73) Lymphocytes (%) (Auto) 42 % (24-48) Monocytes (%) (Auto) 8 % (0-9) Eosinophils (%) (Auto) 1 % (0-3) Basophils (%) (Auto) 1 % (0-3) Neutrophils # (Auto) 4.6 x10^3uL (1.8-7.7) Lymphocytes # (Auto) 3.9 x10^3/uL (1.0-4.8) Monocytes # (Auto) 0.7 x10^3/uL (0.0-1.1) Eosinophils # (Auto) 0.1 x10^3/uL (0.0-0.7) Basophils # (Auto) 0.1 x10^3/uL (0.0-0.2) Prothrombin Time 12.3 SEC (11.7-14.0) Prothromb Time International Ratio 0.9 (0.8-1.1) Sodium Level 138 mmol/L (136-145) 140 mmol/L (136-145) Potassium Level 3.0 mmol/L (3.5-5.1) 3.7 mmol/L (3.5-5.1) Chloride Level 98 mmol/L (98-107) 105 mmol/L (98-107) Carbon Dioxide Level 24 mmol/L (21-32) 25 mmol/L (21-32) Anion Gap 16 (6-14) 10 (6-14) Blood Urea Nitrogen 10 mg/dL (7-20) 9 mg/dL (7-20) Creatinine 0.5 mg/dL (0.6-1.0) 0.7 mg/dL (0.6-1.0) Estimated GFR (Cockcroft-Gault) 145.9 98.9 Glucose Level 158 mg/dL (70-99) 93 mg/dL (70-99) Calcium Level 9.0 mg/dL (8.5-10.1) 8.0 mg/dL (8.5-10.1) Magnesium Level 2.0 mg/dL (1.8-2.4) Total Bilirubin 1.0 mg/dL (0.2-1.0) 1.3 mg/dL (0.2-1.0) Direct Bilirubin 0.3 mg/dL (0.0-0.2) Aspartate Amino Transf (AST/SGOT) 37 U/L (15-37) 29 U/L (15-37) Alanine Aminotransferase (ALT/SGPT) 32 U/L (14-59) 27 U/L (14-59) Alkaline Phosphatase 87 U/L (46-116) 72 U/L (46-116) Creatine Kinase 62 U/L (26-192) Troponin I Quantitative < 0.017 ng/mL (0.000-0.055) < 0.017 ng/mL (0.000-0.055) Total Protein 7.7 g/dL (6.4-8.2) 6.6 g/dL (6.4-8.2) Albumin 4.2 g/dL (3.4-5.0) 3.8 g/dL (3.4-5.0) Lipase 123 U/L (73-393) Salicylates Level < 2.8 mg/dL (2.8-20.0) Salicylate Last Dose Date Unk Salicylate Last Dose Time Unk Acetaminophen Level < 2 mcg/ml (10-30) Acetaminophen Last Dose Date Unk Acetaminophen Last Dose Time Unk Ethyl Alcohol Level 310 mg/dL (0-10) Urine Collection Type Void Urine Color Straw Urine Clarity Clear Urine pH 7.0 Urine Specific [place] <=1.005 Urine Protein Negative mg/dL (NEG-TRACE) Urine Glucose (UA) Negative mg/dL (NEG) Urine Ketones (Stick) Negative mg/dL (NEG) Urine Blood Trace (NEG) Urine Nitrite Negative (NEG) Urine Bilirubin Negative (NEG) Urine Urobilinogen Dipstick 0.2 mg/dL (0.2 mg/dL) Urine Leukocyte Esterase Negative (NEG) Urine RBC Rare /HPF (0-2) Urine WBC 0 /HPF (0-4) Urine Squamous Epithelial Cells Mod /LPF Urine Bacteria Few /HPF (0-FEW) Urine Opiates Screen Neg (NEG) Urine Methadone Screen Neg (NEG) Urine Barbiturates Neg (NEG) Urine Phencyclidine Screen Neg (NEG) Urine Amphetamine/Methamphetamine Neg (NEG) Urine Benzodiazepines Screen Neg (NEG) Urine Cocaine Screen Neg (NEG) Urine Cannabinoids Screen Neg (NEG) Urine Ethyl Alcohol Pos (NEG) Bedside Urine HCG, Qualitative Hcg negative (Negative) BUN/Creatinine Ratio 13 (6-20) Albumin/Globulin Ratio 1.4 (1.0-1.7) Test 12/02/18 12:05 Magnesium Level 2.0 mg/dL (1.8-2.4) Troponin I Quantitative < 0.017 ng/mL (0.000-0.055) Thyroid Stimulating Hormone (TSH) 3.203 uIU/mL (0.358-3.74) Laboratory Tests Test 12/02/18 12:05 Magnesium Level 2.0 mg/dL (1.8-2.4) Troponin I Quantitative < 0.017 ng/mL (0.000-0.055) Thyroid Stimulating Hormone (TSH) 3.203 uIU/mL (0.358-3.74) Medications Current Medications Sodium Chloride 1,000 ml @ 1,000 mls/hr Q1H IV Last administered on 12/01/18at 16:54; Start 12/01/18 at 16:30; Stop 12/01/18 at 17:29; Status DC Ondansetron HCl (Zofran) 4 mg 1X ONCE IV Last administered on 12/01/18at 16:54; Start 12/01/18 at 16:30; Stop 12/01/18 at 16:31; Status DC Ondansetron HCl (Zofran Odt) 4 mg 1X ONCE PO Last administered on 12/01/18at 21:45; Start 12/01/18 at 18:15; Stop 12/01/18 at 18:16; Status DC Ondansetron HCl (Zofran) 4 mg 1X ONCE IV Last administered on 12/01/18at 18:03; Start 12/01/18 at 18:15; Stop 12/01/18 at 18:16; Status DC Famotidine (Pepcid Vial) 20 mg 1X ONCE IVP Last administered on 12/01/18at 18:21; Start 12/01/18 at 18:45; Stop 12/01/18 at 18:46; Status DC Ketorolac Tromethamine (Toradol 15mg Vial) 15 mg 1X ONCE IV Last administered on 12/01/18at 19:13; Start 12/01/18 at 19:45; Stop 12/01/18 at 19:46; Status DC Multi-Ingredient Mouthwash/Gargle (Gi Cocktail) 20 ml 1X ONCE SWSW Last administered on 12/01/18at 20:16; Start 12/01/18 at 20:30; Stop 12/01/18 at 20:31; Status DC Potassium Chloride (KCl Oral Soln) 40 meq 1X ONCE PO Last administered on 12/01/18at 20:31; Start 12/01/18 at 20:45; Stop 12/01/18 at 20:46; Status DC Lorazepam (Ativan) 1 mg 1X ONCE IV Last administered on 12/01/18at 20:29; Start 12/01/18 at 20:45; Stop 12/01/18 at 20:46; Status DC Clonazepam (KlonoPIN) 1 mg 1X ONCE PO Last administered on 12/01/18at 21:45; Start 12/01/18 at 21:30; Stop 12/01/18 at 21:31; Status DC Ondansetron HCl (Zofran) 4 mg PRN Q8HRS PRN IV NAUSEA/VOMITING Last administered on 12/02/18at 10:38; Start 12/01/18 at 21:30; Stop 12/02/18 at 11:49; Status DC Multivitamins 10 ml/Thiamine HCl 100 mg/Folic Acid 1 mg/Sodium Chloride 1,011.2 ml @ 100 mls/ hr DAILY IV Last administered on 12/03/18at 08:17; Start 12/01/18 at 22:00; Stop 12/05/18 at 19:07 Multivitamins (Thera M Plus) 1 tab DAILY PO ; Start 12/02/18 at 09:00; Status UNV Folic Acid (Folic Acid) 1 mg DAILY PO ; Start 12/02/18 at 09:00; Status UNV Thiamine HCl 100 mg DAILY IM ; Start 12/02/18 at 09:00; Stop 12/07/18 at 08:59; Status UNV Lorazepam (Ativan) 2 mg PRN Q1HR PRN IV For CIWA 8-14 Last administered on 12/03/18 08:19; Start 12/01/18 at 21:30 Lorazepam (Ativan) 4 mg PRN Q1HR PRN IV For CIWA 15 or greater; Start 12/01/18 at 21:30 Diphenhydramine HCl (Benadryl) 25 mg PRN Q15MIN PRN IVP EPS symptoms 2'Haldol admin; Start 12/01/18 at 21:30 Clonidine HCl (Catapres) 0.1 mg PRN Q1HR PRN PO SBP > 180 or DBP > 100, MRX3; Start 12/01/18 at 21:30 Acetaminophen/ Hydrocodone Bitart (Lortab 5/325) 1 tab PRN Q6HRS PRN PO PAIN Last administered on 12/03/18 11:03; Start 12/02/18 at 00:30 Chlordiazepoxide (Librium) 25 mg PRN Q6HRS PRN PO ANXIETY / AGITATION; Start 12/02/18 at 09:30 Clonazepam (KlonoPIN) 1 mg TID PO Last administered on 12/03/18 08:17; Start 12/02/18 at 10:00 Tramadol HCl (Ultram) 100 mg PRN TID PRN PO MILD - MODERATE PAIN; Start 12/02/18 at 09:30 Quetiapine Fumarate (SEROquel) 150 mg BID@0900,1200 PO Last administered on 12/03/18 11:04; Start 12/02/18 at 10:00 Quetiapine Fumarate (SEROquel) 500 mg QHS PO Last administered on 12/02/18 20:13; Start 12/02/18 at 21:00 Tizanidine HCl (Zanaflex) 4 mg PRN Q8HRS PRN PO MUSCLE SPASMS Last administered on 12/02/18 20:14; Start 12/02/18 at 09:45 Potassium Chloride (Klor-Con) 20 meq 1X ONCE PO Last administered on 12/02/18at 10:38; Start 12/02/18 at 10:00; Stop 12/02/18 at 10:01; Status DC Adenosine (Adenocard) 6 mg 1X ONCE IV Last administered on 12/02/18at 11:51; Start 12/02/18 at 11:45; Stop 12/02/18 at 11:46; Status DC Ondansetron HCl (Zofran) 4 mg PRN Q6HRS PRN IV NAUSEA/VOMITING Last administered on 12/03/18 08:18; Start 12/02/18 at 12:00 Morphine Sulfate (Morphine Sulfate) 2 mg 1X ONCE IV Last administered on 12/02/18 13:13; Start 12/02/18 at 13:00; Stop 12/02/18 at 13:01; Status DC Metoprolol Tartrate (Lopressor) 25 mg BID PO Last administered on 12/03/18 08:17; Start 12/02/18 at 13:00 Multi-Ingredient Mouthwash/Gargle (Gi Cocktail) 20 ml 1X PRN PRN SWSW chest pain Last administered on 12/03/18 08:19; Start 12/02/18 at 17:15 Active Scripts Active Chlordiazepoxide Hcl 25 Mg Capsule 25 Mg PO PRN Q6HRS PRN MDD 1 Metoprolol Tartrate 25 Mg Tablet 25 Mg PO BID MDD 1 Reported Tizanidine Hcl 4 Mg Tablet 4 Mg PO TID PRN Tramadol Hcl 50 Mg Tablet 100 Mg PO TID PRN Clonazepam 1 Mg Tablet 1 Tab PO TID Seroquel (Quetiapine Fumarate) 100 Mg Tablet 5 Tab PO QHS Seroquel (Quetiapine Fumarate) 100 Mg Tablet 1.5 Tab PO 08 AND NOON Vitals/I & O Vital Sign - Last 24 Hours 12/02/18 12/02/18 12/02/18 12/02/18 13:13 13:14 14:48 15:09 Temp 98.5 98.5 Pulse 95 77 Resp 16 B/P (MAP) 140/81 134/86 (102) Pulse Ox 97 97 99 O2 Delivery Room Air Room Air Room Air 12/02/18 12/02/18 12/02/18 12/02/18 19:59 20:00 20:14 22:57 Temp 98.1 99.0 98.1 99.0 Pulse 83 83 65 Resp 16 15 B/P (MAP) 113/75 (88) 113/75 100/59 (73) Pulse Ox 98 98 O2 Delivery Room Air Room Air Room Air 412/03/18 12/03/18 12/03/18 02:45 07:00 08:00 08:17 Temp 99.2 98.0 99.2 98.0 Pulse 68 106 106 Resp 16 16 B/P (MAP) 114/80 (91) 125/78 (94) 125/78 Pulse Ox 97 99 O2 Delivery Room Air Room Air Room Air 12/03/18 11:03 Resp 18 O2 Delivery Room Air Intake and Output 12/02/18 12/02/18 12/03/18 15:00 23:00 07:00 Intake Total 100 ml Output Total 750 ml 300 ml Balance -650 ml -300 ml KRISTOPHER MA MD Dec 03, 2018 11:25
[2018-12-03] MEDS ORDERED: LIDO:MAALOX 1:1 20 ML SINGLE DOSE. SWSW ONE (11:30)
[2018-12-03] MEDS ORDERED: LIDO:MAALOX 1:1 20 ML SINGLE DOSE. PO PRN (11:30)
[2018-12-03] MEDS: IV 1/2 NORMAL SALINE 1,000 ML IV SCH ×2 (11:30→22:25)
--- NOTE | 2018-12-03 12:46 | NUR ---
Pt has banana bag running, 1/2 NS not started at this time. Banana bag running @ 100mL/hr, 1/2 NS to start approximately 1800.
[2018-12-03] MEDS ORDERED: IOHEXOL 240 MG/ML 50ML VIAL. PO ONE (13:15)
[2018-12-03] MEDS ORDERED: CONTRAST GIVEN. MC PRN (13:30)
--- NOTE | 2018-12-03 13:49 | CARD ---
MR#: [id number] Date of Study: 12/03/2018 Ordering Physician: CATRINA LÓPEZ, Referring Physician: ISAIAS GUIDRY Tech: Leela Richards [place] APPROVED REPORT EXAM: Two-dimensional and M-mode echocardiogram with Doppler and color Doppler. Other Information Quality : AverageHR: 66bpm Rhythm : NSRTechnically limited study due to body habitus. INDICATION Chest Pain 2D DIMENSIONS RVDd2.9 (2.9-3.5cm)Left Atrium(2D)2.9 (1.6-4.0cm) IVSd1.1 (0.7-1.1cm)Aortic Root(2D)2.9 (2.0-3.7cm) LVDd4.5 (3.9-5.9cm)LVOT Diameter2.0 (1.8-2.4cm) PWd0.7 (0.7-1.1cm)LVDs3.2 (2.5-4.0cm) FS (%) 28.7 %SV52.6 ml LVEF(%)55.4 (>50%) M-Mode DIMENSIONS Left Atrium(MM)2.86 (2.5-4.0cm)Aortic Root2.86 (2.2-3.7cm) Aortic Valve AoV Peak Chinmay.110.3cm/sAoV VTI19.0cm AO Peak GR.4.9mmHgLVOT VTI 14.11cm AO Mean GR.3mmHgAVA (VTI)2.44cm2 Mitral Valve MV E Manlllmi95.4cm/sMV E Peak Gr.104mmHg MV DECEL [id number] A Uzkjfnxc02.4cm/s E/A Ratio1.3MV A [id number] TDI Lateral E' P. V5.84cm/sMedial E' P. V5.49cm/s E/Lateral E'12.1E/Medial E'12.8 Tricuspid Valve TR P. [id number]/sRAP [id number] TR Peak Gr.[id number] Pulmonary Vein S1 Kzbsfqtu42.2cm/sS2 Zxezpkhy70.13cm/s D2 Vxqfpprr31.1cm/sPVa [id number] LEFT VENTRICLE The left ventricle is normal size. There is normal left ventricular wall thickness. The left ventricu lar systolic function is normal and the ejection fraction is within normal range. The Ejection Fracti on is 55-60%. There is normal LV segmental wall motion. The left ventricular diastolic function and f illing is normal for age. RIGHT VENTRICLE The right ventricle is normal size. There is normal right ventricular wall thickness. The right ventr icular systolic function is normal. ATRIA The left atrium size is normal. The right atrium size is normal. The interatrial septum is intact wit h no evidence for an atrial septal defect or patent foramen ovale as noted on 2-D or Doppler imaging. AORTIC VALVE The aortic valve is normal in structure and function. The aortic valve is trileaflet. Doppler and Col or Flow revealed no significant aortic regurgitation. There is no significant aortic valvular stenosi s. MITRAL VALVE The mitral valve leaflet appears myxomatous. There is no evidence of mitral valve prolapse. There is no mitral valve stenosis. Doppler and Color-flow revealed mild mitral regurgitation. TRICUSPID VALVE The tricuspid valve is normal in structure and function. Doppler and Color Flow revealed mild tricusp id regurgitation. The PA pressure was estimated at 17 mmHg. There is no tricuspid valve prolapse or v egetation. There is no tricuspid valve stenosis. PULMONIC VALVE Doppler and Color Flow revealed trace pulmonic valvular regurgitation. There is no pulmonic valvular stenosis. GREAT VESSELS The aortic root is normal in size. The ascending aorta is normal in size. The IVC is normal in size a nd collapses >50% with inspiration. PERICARDIAL EFFUSION There is no evidence of significant pericardial effusion. Critical Notification Critical Value: No <Conclusion> The left ventricular systolic function is normal and the ejection fraction is within normal range. Th e Ejection Fraction is 55-60%. There is normal LV segmental wall motion. Doppler and Color-flow revealed mild mitral regurgitation. Signed by : Mehul Paul, Electronically Approved : 12/03/2018 13:49:20
--- NOTE | 2018-12-03 13:53 | PDOC2 ---
GI CONSULT Reason For Consult: Continued emesis, abd pain HPI: HPI: 28 y/o female - unable to obtain meaningful history from her this afternoon. Admitted 12/01 w/ alcohol intoxication and SVT. I asked about pain - she didn't answer. I asked about vomiting - she said "blood." I asked about diarrhea - she said "or the other." Reviewed w/ RN - c/o RUQ/right rib pain, no witnessed emesis today. Has CT ordered - drank some contrast but then said she already did that at [facility] and doesn't need it again. Has had GI cocktail x 2 - doesn't seem to help. Per RN, drinks 2 pints a day. PMH: PMH: per chart - schizophrenia, OCD, bipolar, anxiety, depression, UTI FH: Family History: Other (unable to obtain) Social History: ALCOHOL: heavy ROS: Difficult to obtain. Vitals: Vitals: Vital Signs Date Time Temp Pulse Resp B/P (MAP) Pulse Ox O2 Delivery O2 Flow Rate FiO2 12/03/18 12:03 18 99 Room Air 12/03/18 11:00 98.2 77 109/59 (76) 98.2 Allergies: Coded Allergies: No Known Drug Allergies (Unverified , 12/01/18) Medications: Current Medications Medications (Trade) Dose Ordered Sig/Hannah Route PRN Reason Start Time Stop Time Status Last Admin Dose Admin Quetiapine Fumarate (SEROquel) 500 mg QHS PO 12/02/18 21:00 12/02/18 20:13 Multi-Ingredient Mouthwash/Gargle (Gi Cocktail) 20 ml 1X PRN PRN SWSW chest pain 12/02/18 17:15 12/03/18 08:19 Multi-Ingredient Mouthwash/Gargle (Gi Cocktail) 20 ml 1X ONCE SWSW 12/03/18 11:30 12/03/18 11:31 DC 12/03/18 12:30 Imaging: Imaging: CXR 12/01 IMPRESSION: No acute abnormality is seen. Echocardiogram 12/03 pending PE: GEN: NAD HEENT: keeps eyes closed LUNGS: CTAB HEART: RRR ABD: NABS, S/ND - non-tender currently EXTREMITY: No edema SKIN: No rashes, no jaundice NEURO/PSYCH: drowsy, speech difficult to understand A/P: A/P: Alcohol intoxication SVT Abd pain, ?vomiting -- Add PPI - IV for now and change to PO as able. Withdrawal precautions. Await CT (if she agrees). Will attempt to review records from [facility]. DAGMAR CARRASCO Dec 03, 2018 13:53
--- NOTE | 2018-12-03 16:23 | RAD ---
CT ABD PEL W/ORAL CONTRST ONLY Indication: VOMITING, ABD PAIN, ETOH WITHDRAWAL, NO PRIORS Exposure: One or more of the following individualized dose reduction techniques were utilized for this examination: 1. Automated exposure control 2. Adjustment of the mA and/or kV according to patient size 3. Use of iterative reconstruction technique. Comparison: None are available. Technique: No intravenous contrast given. No oral contrast per request. Findings: Evaluation of solid viscera, bowel and vasculature is compromised by the noncontrast technique. Lung bases are clear. Liver and spleen appear unremarkable. No peripancreatic inflammatory changes are seen. No evidence of adrenal mass. Subtle hypodense lesion involving the left kidney medially, measures about a centimeter, too small to characterize but may represent a cyst. No evidence of hydronephrosis. No evidence of urolithiasis. No calcified gallstone. Aorta is nonaneurysmal. No significant lymph node enlargement. No significant small bowel distention. No evidence of acute colitis. The appendix appears within normal limits. No evidence of ascites. No evidence of pneumoperitoneum. Urinary bladder is grossly unremarkable. There is a low-density in the right adnexal area, measuring about 16 Hounsfield units and 3 cm, may represent an ovarian cyst. Vertebral body height and alignment appear. No aggressive bone destruction. IMPRESSION: 1. No acute findings in the abdomen or pelvis. 2. Suspect 3 cm right ovarian cyst, pelvic ultrasound could further evaluate as needed. 3. Small hypodense left renal lesion is too small to characterize, could represent a cyst. Electronically signed by: Fidel Rojas MD (12/03/2018 4:20 PM) [facility]
[2018-12-03] MEDS: PANTOPRAZOLE IV PUSH 40 MG VIAL. IVP SCH (16:30)
[2018-12-03] MEDS: tiZANidine 4 MG TABLET. PO PRN (17:50)
[2018-12-03 19:19] VITALS: BP 122/84
--- NOTE | 2018-12-03 23:04 | NUR ---
Assessment completed. patient is resting comfortably on RA. CIWA completed. Pt did not have an IV at the start of shift, RN attempted to start IV x4 sticks- unsuccessful. Nursing Electric Distribution Engineer notified, call placed to hospitalist to obtain order for PICC line, while waiting for return call to hospitalist anesthesia showed up and successfully started an IV #22 in Left FA. Banana Bag restarted. Bed in low locked position, call light within reach, will continue to monitor.
[2018-12-03 23:23] VITALS: BP 96/66
[2018-12-04 03:14] VITALS: BP 109/70
[2018-12-04] MEDS: PANTOPRAZOLE IV PUSH 40 MG VIAL. IVP SCH (05:59)
[2018-12-04] MEDS: HYDROcodone/APAP 5/325MG 1 TAB TABLET PO PRN (06:32)
[2018-12-04] MEDS: ONDANSETRON PF 4 MG/2 ML VIAL. IV PRN (06:33)
[2018-12-04 07:00] VITALS: BP 112/74
[2018-12-04] MEDS: clonazePAM 1 MG TABLET PO SCH (08:34)
[2018-12-04] MEDS: METOPROLOL TART IMMED RELEASE 25 MG TABLET. PO SCH (08:34)
[2018-12-04] MEDS: QUEtiapine 100 MG TABLET. PO SCH (08:37)
[2018-12-04] MEDS: MULTIVIT INFUSN,ADULT 4,VIT K 10 ML, THIAMINE INJ 100 MG, FOLIC ACID INJ 1 MG in IV NOR... IV SCH (08:38)
--- NOTE | 2018-12-04 10:48 | PDOC ---
Subjective: Subjective: "Chest pain." Objective: Objective: Reviewed w/ RN - c/o generalized pain, didn't eat breakfast. Vital Signs: Vital Signs Date Time Temp Pulse Resp B/P (MAP) Pulse Ox O2 Delivery O2 Flow Rate FiO2 12/04/18 08:34 97 112/74 12/04/18 07:53 Room Air 12/04/18 07:31 97 12/04/18 07:00 97.5 16 97.5 Imaging: CT A/P 12/03 IMPRESSION: 1. No acute findings in the abdomen or pelvis. 2. Suspect 3 cm right ovarian cyst, pelvic ultrasound could further evaluate as needed. 3. Small hypodense left renal lesion is too small to characterize, could represent a cyst. PE: GEN: NAD - sitting up in bed, plans to take a shower LUNGS: CTAB HEART: RRR ABD: S/ND/NT NEURO/PSYCH: keeps eyes closed, awake, doesn't say much A/P: Alcohol intoxication, psych issues ?abd pain and vomiting - difficult history -- Doesn't offer GI complaints this morning. Withdrawal precautions. Change to PO PPI. DAGMAR CARRASCO Dec 04, 2018 10:48
[2018-12-04 11:00] VITALS: BP 116/78
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
--- NOTE | 2018-12-04 12:01 | NUR ---
Discharge Note: [facility] Discharge instructions and discharge home medications reviewed with Patient and a copy given. All questions have been answered and understanding verbalized. Patient was asked at time of discharge where she would like to go. Patient is currently living in a hotel with her boyfriend. Her boyfriend is a patient in the hospital. Patient stated that she wanted to be with her boyfriend. I walked the patient up to the floor that her boyfriend was on and she stayed with him. Staff notified of current situation and told to call if any issues arose. Patient stated that she would spend the night with him if he were not being discharged today.
[2018-12-04] MEDS ORDERED: PANTOPRAZOLE 40 MG TABLET.DR. PO SCH (16:30)
== END 2018-12-04 11:55 | disposition home or self-care (01) | DRG 641 ==
LOC: ER 16:14 → 2 SOUTH 22:10
PROVIDERS: ADMIT Internal Medicine; ATTEND Internal Medicine
DX: E87.6 Hypokalemia (principal); I47.1 Supraventricular tachycardia; F41.9 Anxiety disorder, unspecified; M19.90 Unspecified osteoarthritis, unspecified site; F31.9 Bipolar disorder, unspecified; F20.9 Schizophrenia, unspecified; F42.9 Obsessive-compulsive disorder, unspecified; F10.229 Alcohol dependence with intoxication, unspecified; I10 Essential (primary) hypertension; Z79.899 Other long term (current) drug therapy
CPT/HCPCS: 36415; 71045; 74176; 80048; 80053; 80076; 80307; 80329; 81001; 81025; 82550; 83690; 83735; 84443; 84484; 85025; 85610; 93005; 93306; 96361; 96374; 96375; 96376; 99285; C9113; G0480; J0153; J1885; J2060; J2270; J2405; J3490; J7030; Q0162; Q9966

== ENCOUNTER 2021-04-11 10:24 | Emergency (ER) | payer OTHER ==
[~2021-04-11] VITALS: Ht 160 cm; Wt 67.0 kg
[~2021-04-11 10:24] MED LIST: CHLO25CA9 PO; CLONAZEPAM1 MG PO; METO25TA4 PO; QUET100T4 PO; TIZA4TAB2 PO; TRAM50TA PO
[2021-04-11 10:35] VITALS: BP 140/66
[2021-04-11 11:53] LABS: BILIRUBIN,URINE NEGATIVE (NEG); CLARITY,URINE CLOUDY; COLOR,URINE YELLOW; NITRITE,URINE POSITIVE (NEG); PROTEIN,URINE NEGATIVE (NEG-TRACE); UROBILINOGEN,URINE 0.2 mg/dL (0.2 mg/dL)
[2021-04-11 12:06] LABS: U PREG PATIENT NEGATIVE (NEG)
[2021-04-11 12:22] LABS: BACTERIA,URINE MANY /HPF (0-FEW); RBC,URINE OCC /HPF (0-2)
[2021-04-11] MEDS ORDERED: CEPHALEXIN 250 MG CAPSULE. PO STA (12:36)
[2021-04-11] MEDS ORDERED: HYDROmorphone 2 MG/ML VIAL IM ONE (12:45)
[2021-04-11] MEDS ORDERED: PHEN100T82 PO (12:55)
[2021-04-11] MEDS ORDERED: CEPH500T PO (12:55)
--- NOTE | 2021-04-11 12:55 | PHYS DOC ---
Past Medical History Past Medical History: Anxiety, Arthritis, Bipolar, Depression, Schizophrenia Additional Past Medical Histor: BULGING DISC (KERI PEDRO APRN) Past Surgical History: (KERI PEDRO APRN) Smoking Status: Current Every Day Smoker Alcohol Use: None Drug Use: None (KERI PEDRO APRN) General Adult EDM: Chief Complaint: LOWER BACK PAIN OR INJURY HPI: HPI: Patient is a 30 year old female who presents to the emergency department reporting this past Sunday she bent over to pick something up and felt her back give out. Patient reports a 10 out of 10 pain, states she is unable to get up and walk around. Patient denies any loss of bowel or bladder, denies urinary retention. Reports she has a chronic lumbar disc bulging problem in which she is treated with Butrans patches, Seroquel, trazodone, tenacity and muscle relaxer, Lyrica, gabapentin, and hydrocodone 5/325 medication. Patient reports she also takes Synthroid. Patient reports a history of RA. Patient reports her last menstrual cycle ended a week ago with normal duration of flow. Patient reports allergies to all NSAIDs and steroids, reporting she is a manic bipolar and these medications trigger her manic state. Patient reports seeing nurse practitioner Kamila at [facility] on [facility]. Patient denies any other physical complaints or physical concerns. (KERI PEDRO APRN) Review of Systems: Review of Systems: 14 body systems of review of systems have been reviewed. See HPI for pertinent positives and negative responses, otherwise all other systems are negative, nonpertinent or noncontributory. Constitutional: Negative except as outlined in HPI above. Skin: Negative except as outlined in HPI above. Eyes: Negative except as outlined in HPI above. HENT: Negative except as outlined in HPI above. Respiratory: Negative except as outlined in HPI above. Cardiovascular: Negative except as outlined in HPI above. GI: Negative except as outlined in HPI above. : Negative except as outlined in HPI above. Musculoskeletal: Negative except as outlined in HPI above. Integument: Negative except as outlined in HPI above. Neurologic: Negative except as outlined in HPI above. Endocrine: Negative except as outlined in HPI above. Lymphatic: Negative except as outlined in HPI above. Psychiatric: Negative except as outlined in HPI above. (KERI PEDRO APRN) Heart Score: C/O Chest Pain: No Risk Factors: Risk Factors: DM, Current or recent (<one month) smoker, HTN, HLP, family history of CAD, obesity. Risk Scores: Score 0 - 3: 2.5% MACE over next 6 weeks - Discharge Home Score 4 - 6: 20.3% MACE over next 6 weeks - Admit for Clinical Observation Score 7 - 10: 72.7% MACE over next 6 weeks - Early Invasive Strategies (KERI PEDRO APRN) Current Medications: Current Medications Medications (Trade) Dose Ordered Sig/Hannah Start Time Stop Time Status Last Admin Dose Admin Cephalexin HCl (Keflex) 500 mg 1X STAT 04/11/21 12:36 04/11/21 12:40 DC Hydromorphone HCl (Dilaudid) 1 mg 1X ONCE 04/11/21 12:45 04/11/21 12:46 (KERI PEDRO APRN) Allergies: Allergies: Allergies Coded Allergies Type Severity Reaction Last Updated Verified No Known Drug Allergies 12/01/18 No (KERI PEDRO APRN) Physical Exam: PE: Constitutional: Well developed, well nourished, no acute distress, non-toxic appearance. 30-year-old female in no apparent distress. HENT: Normocephalic, atraumatic. Eyes: Conjunctiva normal, no discharge. Neck: Normal range of motion, no stridor. Cardiovascular: No cyanosis appreciated, distal cap refill less than 2 seconds. Lungs & Thorax: Patient is in no respiratory distress, no audible adventitious lung sounds appreciated. Abdomen: Nontender, no abnormalities noted. Skin: Warm, dry, no erythema, no rash. Back: No deformities appreciated, no left or right CVA TTP, pain to palpation along lower lumbar region bilaterally, no midline spinal tenderness appreciated. No radiation of pain. Distal cap refill less than 2 seconds, 2+ dorsalis pedis/posterior tibial pulses. No loss of sensation. Extremities: No tenderness, no cyanosis, no clubbing, ROM intact, no edema. Neurologic: Alert and oriented X 3, normal motor function, normal sensory function, no focal deficits noted. Psychologic: Affect normal, judgement normal, mood normal. (KERI PEDRO APRN) Current Patient Data: Labs: Laboratory Tests Test 04/11/21 11:10 Urine Collection Type Unknown Urine Color Yellow Urine Clarity Cloudy Urine pH 8.0 (<5.0-8.0) Urine Specific [place] 1.020 (1.000-1.030) Urine Protein Negative mg/dL (NEG-TRACE) Urine Glucose (UA) Negative mg/dL (NEG) Urine Ketones (Stick) Negative mg/dL (NEG) Urine Blood Negative (NEG) Urine Nitrite Positive (NEG) Urine Bilirubin Negative (NEG) Urine Urobilinogen Dipstick 0.2 mg/dL (0.2 mg/dL) Urine Leukocyte Esterase Negative (NEG) Urine RBC Occ /HPF (0-2) Urine WBC 1-4 /HPF (0-4) Urine Squamous Epithelial Cells Mod /LPF Urine Bacteria Many /HPF (0-FEW) Urine Test Negative (NEG) Vital Signs: Vital Signs Date Time Temp Pulse Resp B/P (MAP) Pulse Ox O2 Delivery O2 Flow Rate FiO2 04/11/21 10:35 98.7 94 12 140/66 (91) 98 Room Air 98.7 (KERI PEDRO APRN) EKG: EKG: [] (KERI PEDRO APRN) Radiology/Procedures: Radiology/Procedures: [] (KERI PEDRO APRN) Course & Med Decision Making: Course & Med Decision Making Pertinent Labs and Imaging studies reviewed. (See chart for details) 30-year-old female, vital signs reviewed, presents to the emergency department concerning acute low back pain after bending over this past Sunday. Patient reports chronic low back pains which she takes medications for. Discussed with patient will order test and urinalysis assay prior to considering pain medication. Patient is amenable to this plan. Patient's urine is infected, the patient is not . Discussed with patient will give 1 mg Dilaudid IM, will start Keflex antibiotic regimen in the ED today, will prescribe for ongoing antibiotic treatment regimen. Discussed with patient strict follow-up with primary care for ongoing pain management that requires narcotics, reevaluation of UTI, patient is amenable to ED discharge planning. Discussed with the patient all findings and diagnostic testing as well as the need to follow-up with their primary care provider for further evaluation and treatment or return to the ED if any new or worsening symptoms. Strict return precautions were also discussed at length, the patient voiced understanding and agreement with the discharge planning. The patient was nontoxic in appearance, in no apparent distress, and hemodynamically stable at the time of disposition. Diagnosis urinary tract infection, chronic back pain. (KERI PEDRO APRN) Norbert Disclaimer: Norbert Disclaimer: This electronic medical record was generated, in whole or in part, using a voice recognition dictation system. (KERI PEDRO APRN) Departure Departure Impression: Primary Impression: Urinary tract infection Qualified Codes: N39.0 - Urinary tract infection, site not specified Additional Impression: Chronic low back pain Qualified Codes: M54.5 - Low back pain; G89.29 - Other chronic pain Disposition: HOME / SELF CARE / HOMELESS Condition: GOOD Referrals: NO PCP (PCP) Patient Instructions: Back Pain, Adult, Urinary Tract Infection Additional Instructions: You were seen today in the emergency department for low back pain since last after bending over. A urinalysis assay was performed today in the emergency department, you are not , your urine is infected, as we discussed I am starting you on an oral antibiotic, please take as directed until complete, please follow-up with your primary care physician for ongoing chronic back pains and RA pains. Please return to the emergency department for wor sening symptoms or other concerns. Thank you for visiting our Emergency Department. It was a pleasure taking care of you today in the emergency department and we appreciate you trusting us with your care. If any additional problems come up don't hesitate to return to visit us. Please follow up with your primary care provider so they can plan additional care if needed and know about the problem that you had. If symptoms worsen come back to the Emergency Department. Any concerning symptoms that start such as chest pain, shortness of air, weakness or numbness on one side of the body, running high fevers or any other concerning symptoms return to the ER. EMERGENCY DEPARTMENT GENERAL DISCHARGE INSTRUCTIONS Thank you for coming to [facility] Emergency Department (ED) today and trusting us with you care. We trust that you had a positive experience in our Emergency Department. If you wish to speak to the department management, you may call the Director at [phone]. YOUR FOLLOW UP INSTRUCTIONS ARE FOLLOWS: 1. Do you have a private Doctor? If you do not have a private doctor, please ask for a resource list of physicians or clinics that may be able to assist you with follow up care. 2. The Emergency Physicain has interpreted your x-rays. The X-Ray specialist will also review them. If there is a change in the findings, you will be notified in 48 hours when at all possible. 3. A lab test or culture has been done, your results will be reviewed and you will be notified if you need a change in treatment. ADDITIONAL INSTRUCTIONS AND INFORMATION: 1. Your care today has been supervised by a physician who is specially trained in emergency care. Many problems require more than one evaluation for a complete diagnosis and treatment. We recommend that you schedule your follow up appointment as recommended to ensure complete treatment of you illness or injury. If you are unable to obtain follow up care and continue to have a problem, or if your condition worsens, we recommend that you return to the ED. 2. We are not able to safely determine your condition over the phone nor are we able to give sound medical advice over the phone. For these safety reasons, if you call for medical advice we will ask you to come to the ED for further evaluation. 3. If you have any questions regarding these discharge instructions please call the ED at [phone]. SAFETY INFORMATION: In the interest of safety, wellness, and injury prevention; we encourage you to wear your sealbelt, if you smoke; quite smoking, and we encourage family to use a protective helmet for bicycling and other sporting events that present an increased risk for head injury. IF YOUR SYMPTOMS WORSEN OR NEW SYMPTOMS DEVELOP, OR YOU HAVE CONCERNS ABOUT YOUR CONDITION; OR IF YOUR CONDITION WORSENS WHILE YOU ARE WAITING FOR YOUR FOLLOW UP APPOINTMENT; EITHER CONTACT YOUR PRIMARY CARE DOCTOR, THE PHYSICIAN WHOSE NAME AND NUMBER YOU WERE GIVEN, OR RETURN TO THE ED IMMEDIATELY. Scripts Phenazopyridine Hcl (PYRIDIUM) 100 Mg Tablet 1 TAB PO TID for urinary discomfort for 2 Days, #6 TAB 0 Refills Prov: KERI PEDRO APRN 04/11/21 Cephalexin (CEPHALEXIN) 500 Mg Tablet 500 MG PO BID for uti for 7 Days, #14 TAB 0 Refills Prov: KERI PEDRO APRN 04/11/21 Attending Signature Attending Signature I have reviewed the PA/OCCUPATIONAL PHYSICIAN's note and plan of care. I was available for consultation as needed during the patient's visit in the emergency department. I agree with the clinical impression, plan, and disposition. (KERI TOVAR DO) KERI PEDRO APRN Apr 11, 2021 12:55 KERI TOVAR DO Apr 11, 2021 14:32
== END 2021-04-11 13:05 | disposition home or self-care (01) ==
LOC: ER 10:24
DX: N39.0 Urinary tract infection, site not specified (principal); G89.29 Other chronic pain; M54.5 Low back pain; F31.9 Bipolar disorder, unspecified; F20.9 Schizophrenia, unspecified; F17.200 Nicotine dependence, unspecified, uncomplicated
CPT/HCPCS: 81001; 81025; 87077; 87086; 87186; 96372; 99283; J1170

== ENCOUNTER 2021-09-02 09:52 | Emergency (ER) | payer MEDICARE, OTHER ==
[~2021-09-02] VITALS: Ht 162.6 cm; Wt 80.0 kg
[~2021-09-02 09:52] MED LIST changes: +CEPH500T PO; +PHEN100T82 PO; +TIZA-75 PO; -TIZA4TAB2 PO
--- NOTE | 2021-09-02 10:15 | PHYS DOC ---
Past Medical History Past Medical History: Anxiety, Arthritis, Bipolar, Depression, Schizophrenia Additional Past Medical Histor: mitral valve regurgitation Past Surgical History: Other Smoking Status: Current Every Day Smoker Alcohol Use: None Drug Use: None Adult General Chief Complaint Chief Complaint: NAUSEA/VOMITING/DIARRHEA HPI HPI Patient is a 31 year old female who presents with nausea and vomiting. She has been ill over the last 4 days. She reports that she has emesis every time she eats or drinks anything. She has persistent nausea when she is not eating or drinking. Did not vomit this morning at all because she did not eat. She does not have abdominal pain. No fever. She contacted her primary care doctor and was referred to the ER to be evaluated and receive IV fluids. No chest pain or shortness of breath. No hematemesis. No prior history of similar symptoms. She has had a few episodes of diarrhea also during the same time. Review of Systems Review of Systems Constitutional: Denies fever or chills Eyes: Denies change in visual acuity, redness, or eye pain HENT: Denies nasal congestion or sore throat Respiratory: Denies cough or shortness of breath Cardiovascular: No additional information not addressed in HPI GI: as documented in HPI : Denies dysuria or hematuria Musculoskeletal: Denies back pain or joint pain Integument: Denies rash or skin lesions Neurologic: Denies headache, focal weakness or sensory changes Endocrine: Denies polyuria or polydipsia All other systems were reviewed and found to be within normal limits, except as documented in this note. Current Medications Current Medications Current Medications Medications (Trade) Dose Ordered Sig/Hannah Start Time Stop Time Status Last Admin Dose Admin Diphenhydramine HCl (Benadryl) 12.5 mg 1X ONCE 09/02/21 10:30 09/02/21 10:31 DC 09/02/21 10:30 12.5 MG Morphine Sulfate (Morphine Sulfate) 4 mg 1X ONCE 09/02/21 12:00 09/02/21 12:01 DC 09/02/21 12:08 4 MG Ondansetron HCl (Zofran) 4 mg 1X ONCE 09/02/21 12:00 09/02/21 12:01 DC 09/02/21 12:08 4 MG Prochlorperazine Edisylate (Compazine) 10 mg 1X ONCE 09/02/21 10:30 09/02/21 10:31 DC 09/02/21 10:30 10 MG Sodium Chloride 1,000 ml @ 1,000 mls/hr 1X ONCE 09/02/21 10:30 09/02/21 11:29 DC 09/02/21 10:30 1,000 MLS/HR Allergies Allergies Allergies Uncoded Allergies Type Severity Reaction Last Updated Verified NSAIDS Allergy Unknown 09/02/21 Physical Exam Physical Exam Constitutional: Well developed, well nourished, no acute distress, non-toxic appearance. HENT: Normocephalic, atraumatic, bilateral external ears normal, oropharynx moist, no oral exudates, nose normal. Eyes: PERRLA, EOMI, conjunctiva normal, no discharge. Neck: Normal range of motion, no tenderness, supple, no stridor. Cardiovascular:Heart rate regular rhythm Lungs & Thorax: Bilateral breath sounds clear to auscultation Abdomen: Bowel sounds normal, soft, no tenderness Skin: Warm, dry, no erythema, no rash. Back: No tenderness, no CVA tenderness. Extremities: No edema Neurologic: Alert and oriented X 3, normal motor function Psychologic: Affect normal Current Patient Data Vital Signs Vital Signs Date Time Temp Pulse Resp B/P (MAP) Pulse Ox O2 Delivery O2 Flow Rate FiO2 09/02/21 12:14 72 16 113/76 (88) 95 Room Air 09/02/21 10:12 98.4 98.4 Lab Values Laboratory Tests Test 09/02/21 10:52 Urine Collection Type Unknown Urine Color Yellow Urine Clarity Clear Urine pH 6.0 (<5.0-8.0) Urine Specific [place] >=1.030 (1.000-1.030) Urine Protein Negative mg/dL (NEG-TRACE) Urine Glucose (UA) Negative mg/dL (NEG) Urine Ketones (Stick) Negative mg/dL (NEG) Urine Blood Negative (NEG) Urine Nitrite Negative (NEG) Urine Bilirubin Negative (NEG) Urine Urobilinogen Dipstick 0.2 mg/dL (0.2 mg/dL) Urine Leukocyte Esterase Negative (NEG) Urine RBC 0 /HPF (0-2) Urine WBC 0 /HPF (0-4) Urine Squamous Epithelial Cells Many /LPF Urine Bacteria Few /HPF (0-FEW) Urine Test Negative (NEG) Sodium Level 139 mmol/L (136-145) Potassium Level 4.1 mmol/L (3.5-5.1) Chloride Level 106 mmol/L (98-107) Carbon Dioxide Level 25 mmol/L (21-32) Anion Gap 8 (6-14) Blood Urea Nitrogen 11 mg/dL (7-20) Creatinine 0.6 mg/dL (0.6-1.0) Estimated GFR (Cockcroft-Gault) 115.9 Glucose Level 98 mg/dL (70-99) Calcium Level 8.5 mg/dL (8.5-10.1) Laboratory Tests 09/02/21 10:52 EKG EKG [] Radiology/Procedures Radiology/Procedures [] Course & Med Decision Making Course & Med Decision Making Pertinent Labs and Imaging studies reviewed. (See chart for details) 10:15: Patient is seen and examined. No acute distress. Her abdominal exam is benign. Today, we will check BMP, UA, UCG, give IV fluids and medications for nausea. 11:55: Reevaluated. Currently feeling improved but has ongoing mild nausea. Will give Zofran. Also asking for pain medication. Morphine ordered. Anticipate discharge home. No acute findings on her lab work-up. IV fluids running and will complete 1 L prior to discharge. 12:15: Patient resting comfortably. No acute distress. Results are reviewed. No acute findings. She is stable for discharge home. Given prescription for Zofran. Recommended she follow-up with her primary care doctor. Norbert Disclaimer Norbert Disclaimer This electronic medical record was generated, in whole or in part, using a voice recognition dictation system. Departure Departure Impression: Primary Impression: Gastroenteritis Disposition: HOME / SELF CARE / HOMELESS Condition: GOOD Referrals: CAROLYNN YOST APRN (PCP) Patient Instructions: Viral Gastroenteritis, [id number] Scripts Ondansetron (ONDANSETRON ODT) 4 Mg Tab.rapdis 1 TAB PO PRN Q6-8HRS for nausea, #16 TAB Prov: TUYET HUFFMAN DO 09/02/21 TUYET HUFFMAN DO Sep 02, 2021 10:15
[2021-09-02] MEDS ORDERED: diphenhydrAMINE 50 MG/ML VIAL IVP ONE (10:30)
[2021-09-02] MEDS ORDERED: IV NORMAL SALINE 1000ML BAG 1,000 ML IV ONE (10:30)
[2021-09-02] MEDS ORDERED: PROCHLORPERAZINE 10 MG/2 ML VIAL. IV ONE (10:30)
[2021-09-02 11:05] LABS: BILIRUBIN,URINE NEGATIVE (NEG); CLARITY,URINE CLEAR; COLOR,URINE YELLOW; NITRITE,URINE NEGATIVE (NEG); PROTEIN,URINE NEGATIVE (NEG-TRACE); UROBILINOGEN,URINE 0.2 mg/dL (0.2 mg/dL)
[2021-09-02 11:08] LABS: CALCIUM 8.5 mg/dL (8.5-10.1); CREATININE 0.6 mg/dL (0.6-1.0); GFR 115.9; POTASSIUM 4.1 mmol/L (3.5-5.1)
[2021-09-02 11:35] LABS: U PREG PATIENT NEGATIVE (NEG)
[2021-09-02 11:47] LABS: BACTERIA,URINE FEW /HPF (0-FEW); RBC,URINE 0 /HPF (0-2); WBC,URINE 0 /HPF (0-4)
[2021-09-02] MEDS ORDERED: ONDANSETRON PF 4 MG/2 ML VIAL. IV ONE (12:00)
[2021-09-02] MEDS ORDERED: MORPHINE SULFATE 4 MG/ML INJ. IV ONE (12:00)
[2021-09-02 12:14] VITALS: BP 113/76
[2021-09-02] MEDS ORDERED: ONDA4TAB12 PO ×2 (12:16→12:56)
== END 2021-09-02 12:29 | disposition home or self-care (01) ==
LOC: ER 09:52
DX: K52.9 Noninfective gastroenteritis and colitis, unspecified (principal); F20.9 Schizophrenia, unspecified; F31.9 Bipolar disorder, unspecified; F17.200 Nicotine dependence, unspecified, uncomplicated
CPT/HCPCS: 36415; 80048; 81001; 81025; 96361; 96374; 96375; 99284; J0780; J1200; J2270; J2405; J7030

== ENCOUNTER 2021-09-16 13:22 | Emergency (ER) | payer MEDICARE, OTHER ==
[~2021-09-16] VITALS: Ht 160 cm; Wt 75.0 kg
[~2021-09-16 13:22] MED LIST changes: +ONDA4TAB12 PO
[2021-09-16 13:57] LABS: BILIRUBIN,URINE NEGATIVE (NEG); CLARITY,URINE CLEAR; COLOR,URINE YELLOW; NITRITE,URINE NEGATIVE (NEG); PH,URINE 5.5 (<5.0-8.0); PROTEIN,URINE NEGATIVE (NEG-TRACE); UROBILINOGEN,URINE 0.2 mg/dL (0.2 mg/dL)
[2021-09-16 14:05] LABS: BACTERIA,URINE FEW /HPF (0-FEW); RBC,URINE 0 /HPF (0-2); WBC,URINE 0 /HPF (0-4)
[2021-09-16] MEDS ORDERED: ORPHENADRINE CITRATE 60 MG/2 ML VIAL. IM ONE (15:00)
--- NOTE | 2021-09-16 15:01 | PHYS DOC ---
Past Medical History Past Medical History: Anxiety, Arthritis, Bipolar, Depression, Schizophrenia Additional Past Medical Histor: mitral valve regurgitation, RHEUMATOID ARTHRITIS Past Surgical History: , Tonsillectomy Smoking Status: Current Every Day Smoker Alcohol Use: None Drug Use: None General Adult EDM: Chief Complaint: FEMALE UROGENTIAL PROBLEMS HPI: HPI: Patient is a 31 year old female who presents with urgency and bilateral flank pain. Patient states that she been taking hydrocodone at home which has given her no relief. Denies nausea/vomiting/diarrhea. Denies abdominal pain. Patient states that she normally takes 15 mg of hydrocodone daily for her chronic pain. Patient has history of fibromyalgia, bipolar disorder. Review of Systems: Review of Systems: ROS At least 10 ROS systems have been reviewed and are negative except as documented in the HPI. General: Negative except as outlined in HPI above. Skin: Negative except as outlined in HPI above. HEENT: Negative except as outlined in HPI above. Neck: Negative except as outlined in HPI above. Respiratory: Negative except as outlined in HPI above.. Cardiovascular: Negative except as outlined in HPI above. Abdomen: Negative except as outlined in HPI above. : Negative except as outlined in HPI above. Back/MSK: Negative except as outlined in HPI above. Neuro: Negative except as outlined in HPI above. Psych: Negative except as outlined in HPI above. Heart Score: C/O Chest Pain: No Risk Factors: Risk Factors: DM, Current or recent (<one month) smoker, HTN, HLP, family history of CAD, obesity. Risk Scores: Score 0 - 3: 2.5% MACE over next 6 weeks - Discharge Home Score 4 - 6: 20.3% MACE over next 6 weeks - Admit for Clinical Observation Score 7 - 10: 72.7% MACE over next 6 weeks - Early Invasive Strategies Allergies: Allergies: Allergies Uncoded Allergies Type Severity Reaction Last Updated Verified NSAIDS Allergy Unknown 09/02/21 STEROIDS Allergy Unknown 09/16/21 Physical Exam: PE: Constitutional: Well developed, well nourished, no acute distress, non-toxic appearance. [] HENT: Normocephalic, atraumatic, bilateral external ears normal, oropharynx moist, no oral exudates, nose normal. [] Eyes: PERRLA, EOMI, conjunctiva normal, no discharge. [] Neck: Normal range of motion, no tenderness, supple, no stridor. [] Cardiovascular:Heart rate regular rhythm, no murmur [] Lungs & Thorax: Bilateral breath sounds clear throughout Abdomen: Bowel sounds normal, soft, no tenderness Skin: Warm, dry, no erythema, no rash. [] Back: No tenderness, no CVA tenderness. [] Extremities: No tenderness, no cyanosis, no clubbing, ROM intact, no edema. [] Neurologic: Alert and oriented X 3, normal motor function, normal sensory function, no focal deficits noted. [] Psychologic: Affect normal, judgement normal, mood normal. [] Current Patient Data: Labs: Laboratory Tests Test 09/16/21 13:42 Urine Collection Type Unknown Urine Color Yellow Urine Clarity Clear Urine pH 5.5 (<5.0-8.0) Urine Specific [place] 1.015 (1.000-1.030) Urine Protein Negative mg/dL (NEG-TRACE) Urine Glucose (UA) Negative mg/dL (NEG) Urine Ketones (Stick) 40 mg/dL (NEG) Urine Blood Negative (NEG) Urine Nitrite Negative (NEG) Urine Bilirubin Negative (NEG) Urine Urobilinogen Dipstick 0.2 mg/dL (0.2 mg/dL) Urine Leukocyte Esterase Negative (NEG) Urine RBC 0 /HPF (0-2) Urine WBC 0 /HPF (0-4) Urine Squamous Epithelial Cells Mod /LPF Urine Bacteria Few /HPF (0-FEW) Urine Mucus Slight /LPF Vital Signs: Vital Signs Date Time Temp Pulse Resp B/P (MAP) Pulse Ox O2 Delivery O2 Flow Rate FiO2 09/16/21 13:30 98.0 99 24 127/79 (95) 97 Room Air 98.0 EKG: EKG: [] Radiology/Procedures: Radiology/Procedures: [] Course & Med Decision Making: Course & Med Decision Making Pertinent Labs and Imaging studies reviewed. (See chart for details) []Patient is a 31 year old female who presents with urgency and bilateral flank pain. Work-up in ER consisted of CT abdomen pelvis, urinalysis,urine . Urinalysis is negative for infection, blood. is negative. Pain farooq ated in the emergency room. CT abdomen pelvis unremarkable. Discussed all results with patient. Patient still reporting pain. Offered to give patient a prescription for Flexeril. Patient states that she has muscle relaxers at home. Patient given hydrocodone prior to leaving. Advised patient to take Tylenol at home. Follow-up with PCP. Discussed return precautions at length. Patient states that she understands discharge instructions. Norbert Disclaimer: Norbert Disclaimer: This electronic medical record was generated, in whole or in part, using a voice recognition dictation system. Departure Departure Impression: Primary Impression: Flank pain Disposition: HOME / SELF CARE / HOMELESS Condition: STABLE Referrals: CAROLYNN YOST APRN (PCP) Patient Instructions: Flank Pain, [id number] Additional Instructions: You are seen the emergency room for flank pain. Your urine was negative for infection. CT of your abdomen pelvis was unremarkable. Make sure you are increasing your fluids. Follow-up with your PCP on Sunday if your pain has not improved. Return to the emergency room with worsening symptoms or concerns. EMERGENCY DEPARTMENT GENERAL DISCHARGE INSTRUCTIONS Thank you for coming to [facility] (ED) today and trusting us with you care. We trust that you had a positive experience in our Emergency Department. If you wish to speak to the department management, you may call the Director at [phone]. YOUR FOLLOW UP INSTRUCTIONS ARE FOLLOWS: 1. Do you have a private Doctor? If you do not have a private doctor, please ask for a resource list of physicians or clinics that may be able to assist you with follow up care. 2. The Emergency Physicain has interpreted your x-rays. The X-Ray specialist will also review them. If there is a change in the findings, you will be notified in 48 hours when at all possible. 3. A lab test or culture has been done, your results will be reviewed and you will be notified if you need a change in treatment. ADDITIONAL INSTRUCTIONS AND INFORMATION: 1. Your care today has been supervised by a physician who is specially trained in emergency care. Many problems require more than one evaluation for a complete diagnosis and treatment. We recommend that you schedule your follow up appointment as recommended to ensure complete treatment of you illness or injury. If you are unable to obtain follow up care and continue to have a problem, or if your condition worsens, we recommend that you return to the ED. 2. We are not able to safely determine your condition over the phone nor are we able to give sound medical advice over the phone. For these safety reasons, if you call for medical advice we will ask you to come to the ED for further evaluation. 3. If you have any questions regarding these discharge instructions please call the ED at [phone]. SAFETY INFORMATION: In the interest of safety, wellness, and injury prevention; we encourage you to wear your sealbelt, if you smoke; quite smoking, and we encourage family to use a protective helmet for bicycling and other sporting events that present an increased risk for head injury. IF YOUR SYMPTOMS WORSEN OR NEW SYMPTOMS DEVELOP, OR YOU HAVE CONCERNS ABOUT YOUR CONDITION; OR IF YOUR CONDITION WORSENS WHILE YOU ARE WAITING FOR YOUR FOLLOW UP AP POINTMENT; EITHER CONTACT YOUR PRIMARY CARE DOCTOR, THE PHYSICIAN WHOSE NAME AND NUMBER YOU WERE GIVEN, OR RETURN TO THE ED IMMEDIATELY. ДМИТРИЙ CAMPBELL APRN Sep 16, 2021 15:01
[2021-09-16 15:44] LABS: U PREG PATIENT NEGATIVE (NEG)
--- NOTE | 2021-09-16 16:18 | RAD ---
CT abdomen and pelvis without contrast PQRS statement: CT scans at this facility use dose reduction including either automated exposure cont rol, iterative reconstructions, and /or weight based radiation dosing via mA and kV modification when appropriate to reduce radiation dose to as low as reasonably achievable. HISTORY: Flank pain. COMPARISON: CT abdomen December 03, 2018 Abdomen findings: Liver, gallbladder, spleen, pancreas, adrenal glands and kidneys are unremarkable. No urinary calculi, hydronephrosis or perinephric edema. Large volume of stool throughout the large b owel. Appendix is negative. No obstruction or inflammatory change in the GI tract. No abdominal fluid . Pelvis findings: Uterus, ovaries, bladder, rectum and bones are unremarkable. Left pelvic phlebolith. No pelvic fluid. IMPRESSION: No acute process. No urinary calculi or hydronephrosis. The appendix is normal. Electronically signed by: Amado Hay MD (09/16/2021 4:15 PM) [facility]
[2021-09-16] MEDS ORDERED: HYDROcodone/APAP 5/325MG 1 TAB TABLET PO ONE (18:00)
[2021-09-16 18:08] VITALS: BP 125/82
== END 2021-09-16 18:13 | disposition home or self-care (01) ==
LOC: ER 13:22
DX: R10.9 Unspecified abdominal pain (principal); R39.15 Urgency of urination; F31.9 Bipolar disorder, unspecified; G89.29 Other chronic pain; F20.9 Schizophrenia, unspecified; F17.200 Nicotine dependence, unspecified, uncomplicated; Z88.8 Allergy status to other drugs, medicaments and biological substances
CPT/HCPCS: 74176; 81001; 81025; 96372; 99285; J2360

== ENCOUNTER 2021-12-16 14:34 | Emergency (ER) | payer MEDICARE, OTHER ==
[~2021-12-16] VITALS: Ht 160 cm; Wt 73.6 kg
[2021-12-16] MEDS ORDERED: HYDROmorphone 2 MG/ML INJ. IVP ONE ×2 (15:15→17:00)
[2021-12-16] MEDS ORDERED: METOCLOPRAMIDE HCL 10 MG/2 ML VIAL. IVP ONE (15:15)
[2021-12-16] MEDS ORDERED: IV NORMAL SALINE 1000ML BAG 1,000 ML IV ONE (15:15)
--- NOTE | 2021-12-16 15:25 | PHYS DOC ---
Past Medical History Past Medical History: Anxiety, Arthritis, Bipolar, Depression, Schizophrenia Additional Past Medical Histor: mitral valve regurgitation, RHEUMATOID ARTHRITIS Past Surgical History: , Tonsillectomy Smoking Status: Current Every Day Smoker Alcohol Use: None Drug Use: None General Adult EDM: Chief Complaint: FLANK PAIN HPI: HPI: Patient is a 31-year-old female who presents today with fatigue and abdominal pain. Patient states that she has had abdominal pain and back pain for a little over 3 weeks, she states that she went to an urgent care a last week and had a stool sample sent for culture and also had a UA done, she states that they did not treat her for anything but they did call her 3 days ago and said that she had C. difficile, they gave her a prescription for vancomycin 125 mg p.o., she then states that she saw her urologist Dr. Carroll yesterday and was diagnosed with a urinary tract infection and given Bactrim DS, she presents today to the emergency department for increased lethargy and she feels like she is not thinking correctly. Patient states that she has been running a fever at home and has been taking Tylenol, she says the highest her fever has gotten is 101, but she says she has been constantly running fever over the last week or so, she said she took a COVID test prior to her urology appointment and tested negative. Patient states she is unable to take nonsteroidal anti-inflammatories because her psychiatrist told her that it would affect her kidneys and affect her medications that she takes for her psychiatric illnesses, she also states that she cannot take steroids due to her bipolar disorder it does cause her to be manic and she states the last time she had steroids she had to be hospitalized. Patient states she has not seen her primary care physician for her abdominal pain she has only been to an urgent care she said she has an appointment in a week or so with her primary care for further follow-up to her abdominal pain and her C. difficile. Review of Systems: Review of Systems: Constitutional: fever [] Eyes: Denies change in visual acuity. [] HENT: Denies nasal congestion or sore throat. [] Respiratory: Denies cough or shortness of breath. [] Cardiovascular: Denies chest pain or edema. [] GI: abdominal pain, diarrhea. [] : Denies dysuria. [] Musculoskeletal: back pain [] Integument: Denies rash. [] Neurologic: Denies headache, focal weakness or sensory changes. [] Endocrine: Denies polyuria or polydipsia. [] Lymphatic: Denies swollen glands. [] Psychiatric: Denies depression or anxiety. [] Heart Score: C/O Chest Pain: No Risk Factors: Risk Factors: DM, Current or recent (<one month) smoker, HTN, HLP, family history of CAD, obesity. Risk Scores: Score 0 - 3: 2.5% MACE over next 6 weeks - Discharge Home Score 4 - 6: 20.3% MACE over next 6 weeks - Admit for Clinical Observation Score 7 - 10: 72.7% MACE over next 6 weeks - Early Invasive Strategies Allergies: Allergies: Allergies Uncoded Allergies Type Severity Reaction Last Updated Verified NSAIDS Allergy Unknown 09/02/21 STEROIDS Allergy Unknown 09/16/21 Physical Exam: PE: Constitutional: Well developed, well nourished, mild distress, non-toxic a ppearance. [] HENT: Normocephalic, atraumatic, bilateral external ears normal, oropharynx moist, no oral exudates, nose normal. [] Eyes: PERRLA, EOMI, conjunctiva normal, no discharge. [] Neck: Normal range of motion, no tenderness, supple, no stridor. [] Cardiovascular:Heart rate regular rhythm, no murmur [] Lungs & Thorax: Bilateral breath sounds clear to auscultation [] Abdomen: Bowel sounds normal, soft, diffuse tenderness, no masses, no pulsatile masses. [] Skin: Warm, dry, no erythema, no rash. [] Back: No tenderness, no CVA tenderness. [] Extremities: No tenderness, no cyanosis, no clubbing, ROM intact, no edema. [] Neurologic: Alert and oriented X 3, normal motor function, normal sensory function, no focal deficits noted. [] Psychologic: Affect normal, judgement normal, mood normal. [] Current Patient Data: Labs: Laboratory Tests Test 12/16/21 15:00 12/16/21 15:14 12/16/21 15:55 Urine Collection Type Unknown Urine Color (Auto) Yellow Urine Turbidity Turbid Urine pH (Auto) 7.5 Urine Specific [place] 1.016 Urine Protein (Auto) Negative mg/dL Urine Glucose (Auto)(UA) Negative mg/dL Urine Ketones (Auto) Negative mg/dL Urine Blood (Auto) Negative Urine Nitrite Negative Urine Bilirubin (Auto) Negative Urine Urobilinogen (Auto) Normal mg/dL Urine Leukocyte Esterase (Auto) Negative Urine RBC 0 /HPF Urine WBC 0 /HPF Urine Squamous Epithelial Cells Mod /LPF Urine Amorphous Sediment Present /HPF Urine Bacteria Few /HPF Bedside Urine HCG, Qualitative Hcg negative White Blood Count 7.8 x10^3/uL Red Blood Count 4.61 x10^6/uL Hemoglobin 14.8 g/dL Hematocrit 43.1 % Mean Corpuscular Volume 94 fL Mean Corpuscular Hemoglobin 32 pg Mean Corpuscular Hemoglobin Concent 34 g/dL Red Cell Distribution Width 13.3 % Platelet Count 244 x10^3/uL Neutrophils (%) (Auto) 42 % Lymphocytes (%) (Auto) 50 % Monocytes (%) (Auto) 6 % Eosinophils (%) (Auto) 2 % Basophils (%) (Auto) 1 % Neutrophils # (Auto) 3.3 x10^3/uL Lymphocytes # (Auto) 3.9 x10^3/uL Monocytes # (Auto) 0.5 x10^3/uL Eosinophils # (Auto) 0.2 x10^3/uL Basophils # (Auto) 0.0 x10^3/uL Sodium Level 141 mmol/L Potassium Level 3.5 mmol/L Chloride Level 103 mmol/L Carbon Dioxide Level 29 mmol/L Anion Gap 9 Blood Urea Nitrogen 10 mg/dL Creatinine 0.7 mg/dL Estimated GFR (Cockcroft-Gault) 97.0 BUN/Creatinine Ratio 14 Glucose Level 83 mg/dL Lactic Acid Level 1.1 mmol/L Calcium Level 9.3 mg/dL Total Bilirubin 0.4 mg/dL Aspartate Amino Transf (AST/SGOT) 24 U/L Alanine Aminotransferase (ALT/SGPT) 32 U/L Alkaline Phosphatase 93 U/L Total Protein 8.2 g/dL Albumin 4.4 g/dL Albumin/Globulin Ratio 1.2 Acetaminophen Level 4.8 mcg/ml Acetaminophen Last Dose Date Acetaminophen Last Dose Time Current Medications Medications (Trade) Dose Ordered Sig/Hannah Route PRN Reason Start Time Stop Time Status Last Admin Dose Admin Sodium Chloride 1,000 ml @ 999 mls/hr 1X ONCE IV 12/16/21 15:15 12/16/21 16:15 DC 12/16/21 16:08 Hydromorphone HCl (Dilaudid) 0.5 mg 1X ONCE IVP 12/16/21 15:15 12/16/21 15:17 DC 12/16/21 16:08 Metoclopramide HCl (Reglan Vial) 10 mg 1X ONCE IVP 12/16/21 15:15 12/16/21 15:17 DC 12/16/21 16:07 Iohexol (Omnipaque 300 Mg/ml) 75 ml 1X ONCE IV 12/16/21 15:30 12/16/21 15:31 DC 12/16/21 15:30 Info (CONTRAST GIVEN -- Rx MONITORING) 1 each PRN DAILY PRN MC SEE COMMENTS 12/16/21 15:30 12/18/21 15:29 Hydromorphone HCl (Dilaudid) 0.5 mg 1X ONCE IVP 12/16/21 17:00 12/16/21 17:01 DC 12/16/21 17:18 Vital Signs: Vital Signs Date Time Temp Pulse Resp B/P (MAP) Pulse Ox O2 Delivery O2 Flow Rate FiO2 12/16/21 17:18 18 100 Room Air 12/16/21 14:55 99.2 87 20 127/79 (95) 98 Room Air 99.2 EKG: EKG: [] Radiology/Procedures: Radiology/Procedures: REASON: abdominal pain PROCEDURE: CT ABD PELV W/ IV CONTRST ONLY CT abdomen and pelvis with contrast: Reason for examination: Abdominal pain. Comparison is made to previous study dated 09/16/2021. Helical images were obtained through the abdomen and pelvis with intravenous administration of 75 cc of Omnipaque 300. Reconstruction was performed in sagittal and coronal planes. Exposure: One or more of the following individualized dose reduction techniques were utilized for this examination: 1. Automated exposure control 2. Adjustment of the mA and/or kV according to patient size 3. Use of iterative reconstruction technique. The lung huggins show some dependent atelectasis. The heart size is normal with no pericardial effusion evident. No abnormality seen at the liver, spleen, adrenal glands, pancreas or gallbladder. The abdominal aorta and inferior vena cava show no acute abnormalities. The kidneys show small hypodense lesions consistent with cysts in the left kidney. No renal calculi, hydronephrosis or obstructive uropathy is seen. The colon shows presence of a few diverticuli without diverticulitis. There is a moderate amount of fecal material within the colon. There is no colitis. No abnormality seen at the appendix. The small intestinal tract shows no abnormal dilatation, wall thickening or obstruction. There is gastric content but no gastric wall thickening or obstruction. No abnormality seen at the duodenum. No abnormality seen at the bladder or uterus. There appear to be small cysts at the right ovary. No other adnexal masses are seen. There is no free fluid or free air seen in the abdomen or pelvis. No acute bony abnormalities are seen. IMPRESSION: Small hypodense lesions in the right ovary probably representing small cysts. Small cysts in the left kidney. Moderate amount of fecal material in colon. No other focal abnormality seen in the abdomen or pelvis. Electronically signed by: Janette Jenkins MD (12/16/2021 5:11 PM) [facility][] Course & Med Decision Making: Course & Med Decision Making Pertinent Labs and Imaging studies reviewed. (See chart for details) 0 I reviewed radiological and laboratory results with patient and inform her there was no acute processes noted, she is to follow-up with the [facility] on Sunday which she is currently scheduled with, she is to continue her medications with vancomycin as well as the Bactrim DS and her other medications that she takes on a daily basis for her chronic medical issues. Patient verbalized understanding of this and agreeable with the plan of care. Patient can take Tylenol as needed for pain and fever. Patient is to also increase her fluids. Norbert Disclaimer: Norbert Disclaimer: This electronic medical record was generated, in whole or in part, using a voice recognition dictation system. Departure Departure Impression: Primary Impression: Abdominal pain Qualified Codes: R10.84 - Generalized abdominal pain Disposition: HOME / SELF CARE / HOMELESS Condition: STABLE Referrals: CAROLYNN YOST APRN (PCP) Patient Instructions: Abdominal Pain Additional Instructions: Continue your Bactrim DS and your vancomycin as previously prescribed Increase your by mouth fluids making sure you stay well-hydrated Tylenol as needed for fever or pain Follow-up with your primary care physician at the [facility] for a possible referral to a GI clinic for further evaluation and management of your abdominal pain. Return here to the emergency department should you have pain that localizes to the right lower quadrant or you are unable to take any by mouth fluid. [facility] [address] [place] [address] [facility] [address] [place] [address] [facility] [address] [facility] [place] [address] [facility] [address] [place] [address] [facility] [address] [place] [address] [address] [place] [address] [address] [place] [address] [facility] [address] [place] [address] [facility] [address] [place] [address] [facility] [address] [place] [address] [employer]EN[employer]ETTA [employer]EC[employer]RA [employer] December 16, 2021 15:25
[2021-12-16 15:28] LABS: AMORPHOUS SEDIMENT,UR PRESENT /HPF; BACTERIA,URINE FEW /HPF (0-FEW); RBC,URINE 0 /HPF (0-2); WBC,URINE 0 /HPF (0-4)
[2021-12-16] MEDS ORDERED: CONTRAST GIVEN. MC PRN (15:30)
[2021-12-16] MEDS ORDERED: IOHEXOL 300 MG/ML 100ML VIAL. IV ONE (15:30)
[2021-12-16 16:04] LABS: BASO % 1 % (0-3); EOS # 0.2 x10^3/uL (0.0-0.7); EOS % 2 % (0-3); HEMATOCRIT 43.1 % (36.0-47.0); HEMOGLOBIN 14.8 g/dL (12.0-15.5); LYMPH # 3.9 x10^3/uL (1.0-4.8); LYMPH % 50 % (24-48); MEAN CORPUSCULAR HEMOGLOBIN 32 pg (25-35); MEAN CORPUSCULAR HGB CONC 34 g/dL (31-37); MEAN CORPUSCULAR VOLUME 94 fL (79-100); MONO # 0.5 x10^3/uL (0.0-1.1); MONO % 6 % (0-9); NEUT # 3.3 x10^3/uL (1.8-7.7); NEUT % 42 % (31-73); PLATELET COUNT 244 x10^3/uL (140-400); RED BLOOD COUNT 4.61 x10^6/uL (3.50-5.40); RED CELL DISTRIBUTION WIDTH 13.3 % (11.5-14.5); WHITE BLOOD COUNT 7.8 x10^3/uL (4.0-11.0)
[2021-12-16 16:16] LABS: CALCIUM 9.3 mg/dL (8.5-10.1); CREATININE 0.7 mg/dL (0.6-1.0); POTASSIUM 3.5 mmol/L (3.5-5.1)
[2021-12-16 16:22] LABS: ALBUMIN 4.4 g/dL (3.4-5.0); ALBUMIN/GLOBULIN RATIO 1.2 (1.0-1.7); TOTAL BILIRUBIN 0.4 mg/dL (0.2-1.0); TOTAL PROTEIN 8.2 g/dL (6.4-8.2)
[2021-12-16 16:30] LABS: ACETAMIN 4.8 mcg/ml (10-30)
[2021-12-16 17:08] VITALS: BP 141/88
--- NOTE | 2021-12-16 17:14 | RAD ---
CT abdomen and pelvis with contrast: Reason for examination: Abdominal pain. Comparison is made to previous study dated 09/16/2021. Helical images were obtained through the abdomen and pelvis with intravenous administration of 75 cc of Omnipaque 300. Reconstruction was performed in sagittal and coronal planes. Exposure: One or more of the following individualized dose reduction techniques were utilized for thi s examination: 1. Automated exposure control 2. Adjustment of the mA and/or kV according to patient size 3. Use of iterative reconstruction technique. The lung huggins show some dependent atelectasis. The heart size is normal with no pericardial effusion evident. No abnormality seen at the liver, spleen, adrenal glands, pancreas or gallbladder. The abdominal aorta and inferior vena cava show no acute abnormalities. The kidneys show small hypodense lesions consistent with cysts in the left kidney. No renal calculi, hydronephrosis or obstructive uropathy is seen. The colon shows presence of a few diverticuli without diverticulitis. There is a moderate amount of f ecal material within the colon. There is no colitis. No abnormality seen at the appendix. The small i ntestinal tract shows no abnormal dilatation, wall thickening or obstruction. There is gastric conten t but no gastric wall thickening or obstruction. No abnormality seen at the duodenum. No abnormality seen at the bladder or uterus. There appear to be small cysts at the right ovary. No o ther adnexal masses are seen. There is no free fluid or free air seen in the abdomen or pelvis. No acute bony abnormalities are seen. IMPRESSION: Small hypodense lesions in the right ovary probably representing small cysts. Small cysts in the left kidney. Moderate amount of fecal material in colon. No other focal abnormality seen in the abdomen or pelvis. Electronically signed by: Janette Jenkins MD (12/16/2021 5:11 PM) [facility]
== END 2021-12-16 17:57 | disposition home or self-care (01) ==
LOC: ER 14:34
DX: R10.84 Generalized abdominal pain (principal); R53.83 Other fatigue; M54.9 Dorsalgia, unspecified; F31.9 Bipolar disorder, unspecified; F20.9 Schizophrenia, unspecified; F17.200 Nicotine dependence, unspecified, uncomplicated; Z88.8 Allergy status to other drugs, medicaments and biological substances
CPT/HCPCS: 36415; 74177; 80053; 80329; 81001; 81025; 83605; 85025; 87040; 96361; 96374; 96375; 96376; 99285; J1170; J2765; J7030; Q9967; G0480

== ENCOUNTER 2021-12-22 13:37 | Inpatient (IN) | payer MEDICARE, OTHER ==
[~2021-12-22] VITALS: Ht 160 cm; Wt 72.7 kg
[2021-12-22] MEDS ORDERED: IV RINGERS,LACTATED 1000ML 1,000 ML IV ONE (14:15)
[2021-12-22 14:45] LABS: AMORPHOUS SEDIMENT,UR PRESENT /HPF; BACTERIA,URINE FEW /HPF (0-FEW); GRANULAR CASTS,URINE OCCASIONAL /HPF; RBC,URINE 0 /HPF (0-2); WBC,URINE 0 /HPF (0-4)
[2021-12-22] MEDS ORDERED: PROCHLORPERAZINE 10 MG/2 ML VIAL. IV ONE (14:45)
[2021-12-22] MEDS ORDERED: MORPHINE SULFATE 2 MG/ML INJ. IVP ONE (14:45)
[2021-12-22 15:05] LABS: BASO % 1 % (0-3); EOS # 0.1 x10^3/uL (0.0-0.7); EOS % 2 % (0-3); HEMATOCRIT 39.9 % (36.0-47.0); HEMOGLOBIN 13.9 g/dL (12.0-15.5); LYMPH # 3.7 x10^3/uL (1.0-4.8); LYMPH % 48 % (24-48); MEAN CORPUSCULAR HEMOGLOBIN 33 pg (25-35); MEAN CORPUSCULAR HGB CONC 35 g/dL (31-37); MEAN CORPUSCULAR VOLUME 94 fL (79-100); MONO # 0.4 x10^3/uL (0.0-1.1); MONO % 6 % (0-9); NEUT # 3.4 x10^3/uL (1.8-7.7); NEUT % 44 % (31-73); PLATELET COUNT 258 x10^3/uL (140-400); RED BLOOD COUNT 4.23 x10^6/uL (3.50-5.40); WHITE BLOOD COUNT 7.7 x10^3/uL (4.0-11.0)
[2021-12-22 15:21] LABS: CALCIUM 9.1 mg/dL (8.5-10.1); CREATININE 0.8 mg/dL (0.6-1.0); GFR 83.1; POTASSIUM 3.7 mmol/L (3.5-5.1)
[2021-12-22 15:35] LABS: ALBUMIN 4.1 g/dL (3.4-5.0); ALBUMIN/GLOBULIN RATIO 1.2 (1.0-1.7); TOTAL BILIRUBIN 0.3 mg/dL (0.2-1.0); TOTAL PROTEIN 7.4 g/dL (6.4-8.2)
[2021-12-22] MEDS ORDERED: traMADol 50 MG TABLET PO ONE (17:00)
[2021-12-22] MEDS ORDERED: HYDROmorphone 2 MG/ML INJ. IVP ONE (17:45)
--- NOTE | 2021-12-22 17:52 | PHYS DOC ---
Past Medical History Past Medical History: Anxiety, Arthritis, Bipolar, Depression, Schizophrenia Additional Past Medical Histor: mitral valve regurgitation,RHEUMATOID ARTHRITIS,C-DIFF,BLADDER INFECTION Past Surgical History: No Surgical History Smoking Status: Current Every Day Smoker Alcohol Use: None Drug Use: None General Adult EDM: Chief Complaint: FATIGUE HPI: HPI: Patient is a 31 year old female who presents with worsening lower abdominal pain and fatigue. Patient reports she was seen here last week after being diagnosed with C. difficile on 12/13/2021. Patient reports she has 2 days left of her antibiotics, and has been taking them as prescribed, however her abdominal pain is worsening. She rates her pain 8/10 and nonradiating in her low abdomen. The pain is not affected by defecation. She reports associated nausea. Patient called her primary care doctor, who advised that she come to the ER for worsening symptoms. She states she has tramadol at home, which is prescribed for rheumatoid arthritis. Tramadol is "not touching" the pain. Patient denies emesis, bloody stool, fever, chills. At the time of her C. difficile diagnosis, she was also treated for UTI. Review of Systems: Review of Systems: Constitutional: See HPI Eyes: Denies change in visual acuity, visual field deficits or discharge HENT: Denies ear pain, nasal congestion or sore throat Respiratory: Denies cough or shortness of breath Cardiovascular: Denies chest pain, palpitations or edema GI: See HPI : Denies dysuria or hematuria Musculoskeletal: Denies back pain or joint pain Integument: Denies rash or other skin lesion Neurologic: Denies headache, focal weakness or sensory changes Heart Score: C/O Chest Pain: No Current Medications: Current Medications Medications (Trade) Dose Ordered Sig/[facility] Start Time Stop Time Status Last Admin Dose Admin Morphine Sulfate (Morphine Sulfate) 2 mg 1X ONCE 12/22/21 14:45 12/22/21 14:46 DC 12/22/21 15:05 2 MG Prochlorperazine Edisylate (Compazine) 10 mg 1X ONCE 12/22/21 14:45 12/22/21 14:46 DC 12/22/21 15:03 10 MG Ringer's Solution 1,000 ml @ 1,000 mls/hr 1X ONCE 12/22/21 14:15 12/22/21 15:14 DC 12/22/21 14:58 1,000 MLS/HR Tramadol HCl (Ultram) 50 mg 1X ONCE 12/22/21 17:00 12/22/21 17:01 DC 12/22/21 17:05 50 MG Allergies: Allergies: Allergies Coded Allergies Type Severity Reaction Last Updated Verified Corticosteroids (Glucocorticoids) Allergy Intermediate 12/22/21 Yes NSAIDS (Non-Steroidal Anti-Inflamma Allergy Intermediate 12/22/21 Yes Physical Exam: PE: Constitutional: Well developed, well nourished, no acute distress, non-toxic appearance. HENT: Normocephalic, atraumatic, bilateral external ears normal, oropharynx moist, nose normal. Eyes: EOMI, conjunctiva normal, no discharge. Neck: Normal range of motion, no stridor. Abdomen: Bowel sounds normal, soft, low abdominal tenderness without rebound tenderness, no masses, no pulsatile masses. Skin: Warm, dry, no erythema, no rash. Extremities: No cyanosis, no clubbing, ROM intact, no edema. Neurologic: Alert and oriented x4, normal motor function, normal sensory function, no focal deficits noted. Current Patient Data: Labs: Laboratory Tests Test 12/22/21 14:04 12/22/21 14:16 12/22/21 14:53 Urine Collection Type Unknown Urine Color (Auto) Light yellow Urine Turbidity Hazy Urine pH (Auto) 6.5 (<5.0-8.0) Urine Specific [place] 1.009 (1.000-1.030) Urine Protein (Auto) Negative mg/dL (Negative) Urine Glucose (Auto)(UA) Negative mg/dL (Negative) Urine Ketones (Auto) Negative mg/dL (Negative) Urine Blood (Auto) Negative (Negative) Urine Nitrite Negative (Negative) Urine Bilirubin (Auto) Negative (Negative) Urine Urobilinogen (Auto) Normal mg/dL (Normal) Urine Leukocyte Esterase (Auto) Negative (Negative) Urine RBC 0 /HPF (0-2) Urine WBC 0 /HPF (0-4) Urine Squamous Epithelial Cells Many /LPF Urine Amorphous Sediment Present /HPF Urine Bacteria Few /HPF (0-FEW) Urine Granular Casts Occasional /HPF POC Urine HCG, Qualitative Hcg negative (Negative) White Blood Count 7.7 x10^3/uL (4.0-11.0) Red Blood Count 4.23 x10^6/uL (3.50-5.40) Hemoglobin 13.9 g/dL (12.0-15.5) Hematocrit 39.9 % (36.0-47.0) Mean Corpuscular Volume 94 fL (79-100) Mean Corpuscular Hemoglobin 33 pg (25-35) Mean Corpuscular Hemoglobin Concent 35 g/dL (31-37) Red Cell Distribution Width 13.0 % (11.5-14.5) Platelet Count 258 x10^3/uL (140-400) Neutrophils (%) (Auto) 44 % (31-73) Lymphocytes (%) (Auto) 48 % (24-48) Monocytes (%) (Auto) 6 % (0-9) Eosinophils (%) (Auto) 2 % (0-3) Basophils (%) (Auto) 1 % (0-3) Neutrophils # (Auto) 3.4 x10^3/uL (1.8-7.7) Lymphocytes # (Auto) 3.7 x10^3/uL (1.0-4.8) Monocytes # (Auto) 0.4 x10^3/uL (0.0-1.1) Eosinophils # (Auto) 0.1 x10^3/uL (0.0-0.7) Basophils # (Auto) 0.0 x10^3/uL (0.0-0.2) Sodium Level 141 mmol/L (136-145) Potassium Level 3.7 mmol/L (3.5-5.1) Chloride Level 104 mmol/L (98-107) Carbon Dioxide Level 25 mmol/L (21-32) Anion Gap 12 (6-14) Blood Urea Nitrogen 6 mg/dL (7-20) L Creatinine 0.8 mg/dL (0.6-1.0) Estimated GFR (Cockcroft-Gault) 83.1 BUN/Creatinine Ratio 8 (6-20) Glucose Level 82 mg/dL (70-99) Lactic Acid Level 0.8 mmol/L (0.4-2.0) Calcium Level 9.1 mg/dL (8.5-10.1) Total Bilirubin 0.3 mg/dL (0.2-1.0) Aspartate Amino Transferase (AST) 24 U/L (15-37) Alanine Aminotransferase (ALT) 28 U/L (14-59) Alkaline Phosphatase 92 U/L (46-116) Total Protein 7.4 g/dL (6.4-8.2) Albumin 4.1 g/dL (3.4-5.0) Albumin/Globulin Ratio 1.2 (1.0-1.7) Lipase 51 U/L (73-393) L Laboratory Tests 12/22/21 14:53 Laboratory Tests 12/22/21 14:53 Vital Signs: Vital Signs Date Time Temp Pulse Resp B/P (MAP) Pulse Ox O2 Delivery O2 Flow Rate FiO2 12/22/21 15:32 86 16 116/64 (81) 98 Room Air 12/22/21 15:08 84 16 121/71 (88) 97 Room Air 12/22/21 15:05 16 98 Room Air 12/22/21 14:08 88 14 126/72 (90) 98 Room Air 12/22/21 14:03 98.4 87 16 126/72 (90) 96 Room Air 98.4 Radiology/Procedures: Radiology/Procedures: PROCEDURE: CT ABD PELV W/ IV CONTRST ONLY CT abdomen and pelvis with contrast: Reason for examination: Abdominal pain. Comparison is made to previous study dated 09/16/2021. Helical images were obtained through the abdomen and pelvis with intravenous administration of 75 cc of Omnipaque 300. Reconstruction was performed in sagittal and coronal planes. Exposure: One or more of the following individualized dose reduction techniques were utilized for this examination: 1. Automated exposure control 2. Adjustment of the mA and/or kV according to patient size 3. Use of iterative reconstruction technique. The lung huggins show some dependent atelectasis. The heart size is normal with no pericardial effusion evident. No abnormality seen at the liver, spleen, adrenal glands, pancreas or gallbladde r. The abdominal aorta and inferior vena cava show no acute abnormalities. The kidneys show small hypodense lesions consistent with cysts in the left kidney. No renal calculi, hydronephrosis or obstructive uropathy is seen. The colon shows presence of a few diverticuli without diverticulitis. There is a moderate amount of fecal material within the colon. There is no colitis. No abnormality seen at the appendix. The small intestinal tract shows no abnormal dilatation, wall thickening or obstruction. There is gastric content but no gastric wall thickening or obstruction. No abnormality seen at the duodenum. No abnormality seen at the bladder or uterus. There appear to be small cysts at the right ovary. No other adnexal masses are seen. There is no free fluid or free air seen in the abdomen or pelvis. No acute bony abnormalities are seen. IMPRESSION: Small hypodense lesions in the right ovary probably representing small cysts. Small cysts in the left kidney. Moderate amount of fecal material in colon. No other focal abnormality seen in the abdomen or pelvis. Electronically signed by: Janette Jenkins MD (12/16/2021 5:11 PM) [facility] Course & Med Decision Making: Course & Med Decision Making Pertinent Labs and Imaging studies reviewed. (See chart for details) Patient is a 31-year-old female who returns to the emergency department with worsening abdominal pain, nausea and diarrhea. Patient states that she was diagnosed on 12/13/2021 with C. difficile via urgent care. We have no record of a this positive test result. She presented to the emergency department 3 days later and was discharged to home with instruction to continue oral antibiotics and rehydrate. Today, her pain is not well controlled, and Dilaudid was administered. She was admitted to hospitalist service under Dr. Perez for pain control and further GI work-up. Norbert Disclaimer: Norbert Disclaimer: This electronic medical record was generated, in whole or in part, using a voice recognition dictation system. Departure Departure Impression: Primary Impression: Abdominal pain Qualified Codes: R10.30 - Lower abdominal pain, unspecified Additional Impressions: History of Clostridioides difficile colitis Diarrhea Qualified Codes: R19.7 - Diarrhea, unspecified Disposition: ADMITTED INPATIENT Admitting Physician: AURELIO Segundo) Condition: STABLE Referrals: CAROLYNN YOST APRN (PCP) FRANNY TEE December 22, 2021 17:52
[2021-12-22] MEDS ORDERED: ONDANSETRON PF 4 MG/2 ML VIAL. IVP PRN ×2 (18:00→19:15)
--- NOTE | 2021-12-22 18:02 | PDOC1 ---
History and Physical Date of Admission Date of Admission DATE: 12/22/21 TIME: 18:02 Identification/Chief Complaint Chief Complaint Abdominal pain, diarrhea Source Source: Patient History of Present Illness History of Present Illness Ms Estrada is a 31 year old female w/ PMHx bipolar disorder, rheumatoid arthritis, fibromyalgia/chronic pain syndrome who presents to the ED from home, accompanied by her fiancee with worsening lower abdominal pain, diarrhea, and fatigue. Her abdominal pain is diffuse sometimes in the right upper quadrant but worse in her suprapubic area and left lower quadrant and colicky coming in waves and is crampy as well as sharp. She notes she was seen in urgent care 2 weeks ago for same complaint and had a stool sample she was notified on 12/13/2021 of stool positive for C. difficile and started on vancomycin 125 mg p.o. QID for 14 days and notes on 12/15/2021 she saw her urologist, Dr. Carroll, and was diagnosed with a urinary tract infection and given Bactrim DS, she came to the ED with the same complaint on 12/16/[address] abdomen pelvis at that time showed moderate fecal material in colon but no other abnormalities and was instructed to follow-up on 12/20/2021 at [facility] and to continue her home medications and complete her Bactrim DS and vancomycin therapy and increase her fluid intake. She notes her pain continue to worsen and still had diarrhea and was given a prescription for tramadol and her primary care instructor to go to the ED for further treatment. She notes 2 days ago she tried to eat an Bulgarian muffin with butter on it and has not been able to eat anything since then due to significant nausea. In ED she was given tramadol with no improvement in her pain and had significant nausea she was then given IV morphine which did not improve her pain and was given a dose of IV hydromorphone which improved her pain and do failure oral medications and nausea unable to take p.o. need for IV pain medications, for consideration for admission. She told ED staff that she cannot take NSAIDs due to potential interactions with her psychiatric medications and on my interview I requested clarification and asked if she had been seen outpatient for any other pain complaints and she notes she did not disclose to previous providers that she sees outpatient pain management and takes Belbuca 900 mcg twice daily tramadol 50 mg as needed twice daily. She is seen by outpatient psychiatry and is maintained on clonazepam 1 mg as needed twice daily gabapentin 600 mg 3 times daily trazodone 200 mg nightly, Seroquel 600 mg nightly and 50 mg 3 times daily, Lyrica 150 mg 3 times daily. For her rheumatoid arthritis she has previously been on Enbrel and has taken Plaquenil with no improvement and now is maintained on every other week Humira she was instructed to hold her most recent Humira dose due to her C. difficile infection. CBC and CMP and lactic acid all within normal laboratory limits urine drug screen positive for nonprescribed opioids positive for cannabinoids, urinalysis was significant squamous cells hCG negative. She has Nexplanon implant in her right arm. She is left-handed. I instructed her pain management may be difficult given her large doses of Belbuca she takes outpatient and that she should bring it in as new research has shown discontinuation of buprenorphine being treated for an acute pain crisis may make pain management more difficult. She strenuously notes her Belbuca dosing is for her chronic rheumatoid arthritis pain and she has not discussed abdominal pain with her pain management physician previously. After counseling she feels she cannot manage her pain outpatient as she has been trying to do be admitted for further care I have advised GI consultation. Past Medical History Cardiovascular: No pertinent hx Pulmonary: No pertinent hx GI: Other (C. difficile 12/13/2021) Heme/Onc: No pertinent hx Hepatobiliary: No pertinent hx Psych: Addictions, Bipolar, Depression, Other Rheumatologic: Fibromyalgia, Rheumatoid arthritis Infectious disease: No pertinent hx Renal/: UTI Endocrine: No pertinent hx Past Surgical History Past Surgical History: , Tonsillectomy Family History Family History: Family History Unknown Social History Smoke: 1 pack per day ALCOHOL: none Drugs: Marijuana Current Problem List Problem List Problems Medical Problems: (1) Abdominal pain Status: Acute Current Medications Current Medications Current Medications Ringer's Solution 1,000 ml @ 1,000 mls/hr 1X ONCE IV Last administered on 12/22/21at 14:58; Start 12/22/21 at 14:15; Stop 12/22/21 at 15:14; Status DC Prochlorperazine Edisylate (Compazine) 10 mg 1X ONCE IV Last administered on 12/22/21at 15:03; Start 12/22/21 at 14:45; Stop 12/22/21 at 14:46; Status DC Morphine Sulfate (Morphine Sulfate) 2 mg 1X ONCE IVP Last administered on 12/22/21at 15:05; Start 12/22/21 at 14:45; Stop 12/22/21 at 14:46; Status DC Tramadol HCl (Ultram) 50 mg 1X ONCE PO Last administered on 12/22/21at 17:05; Start 12/22/21 at 17:00; Stop 12/22/21 at 17:01; Status DC Hydromorphone HCl (Dilaudid) 0.5 mg 1X ONCE IVP Last administered on 12/22/21at 17:55; Start 12/22/21 at 17:45; Stop 12/22/21 at 17:46; Status DC Ondansetron HCl (Zofran) 4 mg PRN Q8HRS PRN IVP NAUSEA/VOMITING; Start 12/22/21 at 18:00; Stop 12/23/21 at 17:59 Active Scripts Active Ondansetron Odt (Ondansetron) 4 Mg Tab.rapdis 1 Tab PO PRN Q6-8HRS Pyridium (Phenazopyridine Hcl) 100 Mg Tablet 1 Tab PO TID 2 Days Cephalexin 500 Mg Tablet 500 Mg PO BID 7 Days Chlordiazepoxide Hcl 25 Mg Capsule 25 Mg PO PRN Q6HRS PRN MDD 1 Metoprolol Tartrate 25 Mg Tablet 25 Mg PO BID MDD 1 Reported Tizanidine Hcl 4 Mg Tablet 4 Mg PO TID PRN Tramadol Hcl 50 Mg Tablet 100 Mg PO TID PRN Clonazepam 1 Mg Tablet 1 Tab PO TID Seroquel (Quetiapine Fumarate) 100 Mg Tablet 5 Tab PO QHS Allergies Allergies: Coded Allergies: Corticosteroids (Glucocorticoids) (Verified Allergy, Intermediate, 12/22/21) NSAIDS (Non-Steroidal Anti-Inflamma (Verified Allergy, Intermediate, 12/22/21) ROS General: YES: Chills, Fatigue, Malaise, Appetite; No: Night Sweats, Other PSYCHOLOGICAL ROS: YES: Anxiety, Behavioral Disorder, Concentration difficultie , Depression, Irritablity, Memory difficulties, Mood Swings, Obsessive thoughts; No: Decreased libido, Disorientation, Hallucinations, Hostility, Physical abuse, Sexual abuse, Sleep disturbances, Suicidal ideation, Other Eyes: No Blurry vision, No Decreased vision, No Double vision, No Dry eyes, No Excessive tearing, No Eye Pain, No Itchy Eyes, No Loss of vision, No Photophobia, No Scotomata, No Uses contacts, No Uses glasses, No Other HEENT: No: Heacaches, Visual Changes, Hearing change, Nasal congestion, Nasal discharge, Oral lesions, Sinus pain, Sore Throat, Epistaxis, Sneezing, Snoring, Tinnitus, Vertigo, Vocal changes, Other ALLERGY AND IMMUNOLOGY: No: Hives, Insect Bite Sensitivity, Itchy/Watery Eyes, Nasal Congestion, Post Nasal Drip, Seasonal Allergies, Other Hematological and Lymphatic: No: Bleeding Problems, Blood Clots, Blood Transfusions, Brusing, Night Sweats, Pallor, Swollen Lymph Nodes, Other ENDOCRINE: No: Breast Changes, Galactorrhea, Hair Pattern Changes, Hot Flashes, Malaise/lethargy, Mood Swings, Palpitations, Polydipsia/polyuria, Skin Changes, Temperature Intolerance, Unexpected Weight Changes, Other Breast: No New/Changing Breast Lumps, No Nipple changes, No Nipple discharge, No Other Respiratory: No: Cough, Hemoptysis, Orthopnea, Pleuritic Pain, Shortness of breath, SOB with excertion, Sputum Changes, Stridor, Tachypnea, Wheezing, Other Cardiovascular: No Chest Pain, No Palpitations, No Orthopnea, No Paroxysmal Noc. Dyspnea, No Edema, No Lt Headedness, No Other Gastrointestinal: Yes Nausea, Yes Abdominal Pain; No Vomiting, No Diarrhea, No Constipation, No Melena, No Hematochezia, No Other Genitourinary: No Dysuria, No Frequency, No Incontinence, No Hematuria, No Retention, No Discharge, No Urgency, No Pain, No Flank Pain, No Other, No , No , No , No , No , No , No Musculoskeletal: No Gait Disturbance, No Joint Pain, No Joint Stiffness, No Joint Swelling, No Muscle Pain, No Muscular Weakness, No Pain In:, No Swelling In:, No Other Neurological: No Behavorial Changes, No Bowel/Bladder ControlChng, No Confusion, No Dizziness, No Gait Disturbance, No Headaches, No Impaired Coord/balance, No Memory Loss, No Numbness/Tingling, No Seizures, No Speech Problems, No Tremors, No Visual Changes, No Weakness, No Other Skin: No Dry Skin, No Eczema, No Hair Changes, No Lumps, No Mole Changes, No Mottling, No Nail Changes, No Pruritus, No Rash, No Skin Lesion Changes, No Other, No Acne Physical Exam General: Alert, Oriented X3, Cooperative, severe distress HEENT: Atraumatic, PERRLA, EOMI, Mucous membr. moist/pink Lungs: Clear to auscultation, Normal air movement Heart: S1S2, RRR, no thrills, no rubs, no gallops, no murmurs Abdomen: Normal bowel sounds, Soft, No hepatosplenomegaly, No masses, Other (Right upper quadrant suprapubic and left lower quadrant pain on palpation and guarding) Rectal Exam: not examined Extremities: No clubbing, No cyanosis, No edema, Normal pulses, No tenderness/swelling Skin: No rashes, No breakdown, No significant lesion Neuro: Normal gait, Normal speech, Strength at 5/5 X4 ext, Normal tone, Sensation intact, Cranial nerves 3-12 NL, Reflexes 2+ Psych/Mental Status: Mental status NL, Mood NL Vitals Vitals Vital Signs Date Time Temp Pulse Resp B/P (MAP) Pulse Ox O2 Delivery O2 Flow Rate FiO2 12/22/21 15:32 86 16 116/64 (81) 98 Room Air 12/22/21 14:03 98.4 98.4 Labs Labs Laboratory Tests Test 12/22/21 14:04 12/22/21 14:16 12/22/21 14:53 Urine Collection Type Unknown Urine Color (Auto) Light yellow Urine Turbidity Hazy Urine pH (Auto) 6.5 (<5.0-8.0) Urine Specific [place] 1.009 (1.000-1.030) Urine Protein (Auto) Negative mg/dL (Negative) Urine Glucose (Auto)(UA) Negative mg/dL (Negative) Urine Ketones (Auto) Negative mg/dL (Negative) Urine Blood (Auto) Negative (Negative) Urine Nitrite Negative (Negative) Urine Bilirubin (Auto) Negative (Negative) Urine Urobilinogen (Auto) Normal mg/dL (Normal) Urine Leukocyte Esterase (Auto) Negative (Negative) Urine RBC 0 /HPF (0-2) Urine WBC 0 /HPF (0-4) Urine Squamous Epithelial Cells Many /LPF Urine Amorphous Sediment Present /HPF Urine Bacteria Few /HPF (0-FEW) Urine Granular Casts Occasional /HPF Bedside Urine HCG, Qualitative Hcg negative (Negative) White Blood Count 7.7 x10^3/uL (4.0-11.0) Red Blood Count 4.23 x10^6/uL (3.50-5.40) Hemoglobin 13.9 g/dL (12.0-15.5) Hematocrit 39.9 % (36.0-47.0) Mean Corpuscular Volume 94 fL (79-100) Mean Corpuscular Hemoglobin 33 pg (25-35) Mean Corpuscular Hemoglobin Concent 35 g/dL (31-37) Red Cell Distribution Width 13.0 % (11.5-14.5) Platelet Count 258 x10^3/uL (140-400) Neutrophils (%) (Auto) 44 % (31-73) Lymphocytes (%) (Auto) 48 % (24-48) Monocytes (%) (Auto) 6 % (0-9) Eosinophils (%) (Auto) 2 % (0-3) Basophils (%) (Auto) 1 % (0-3) Neutrophils # (Auto) 3.4 x10^3/uL (1.8-7.7) Lymphocytes # (Auto) 3.7 x10^3/uL (1.0-4.8) Monocytes # (Auto) 0.4 x10^3/uL (0.0-1.1) Eosinophils # (Auto) 0.1 x10^3/uL (0.0-0.7) Basophils # (Auto) 0.0 x10^3/uL (0.0-0.2) Sodium Level 141 mmol/L (136-145) Potassium Level 3.7 mmol/L (3.5-5.1) Chloride Level 104 mmol/L (98-107) Carbon Dioxide Level 25 mmol/L (21-32) Anion Gap 12 (6-14) Blood Urea Nitrogen 6 mg/dL (7-20) Creatinine 0.8 mg/dL (0.6-1.0) Estimated GFR (Cockcroft-Gault) 83.1 BUN/Creatinine Ratio 8 (6-20) Glucose Level 82 mg/dL (70-99) Lactic Acid Level 0.8 mmol/L (0.4-2.0) Calcium Level 9.1 mg/dL (8.5-10.1) Total Bilirubin 0.3 mg/dL (0.2-1.0) Aspartate Amino Transf (AST/SGOT) 24 U/L (15-37) Alanine Aminotransferase (ALT/SGPT) 28 U/L (14-59) Alkaline Phosphatase 92 U/L (46-116) Total Protein 7.4 g/dL (6.4-8.2) Albumin 4.1 g/dL (3.4-5.0) Albumin/Globulin Ratio 1.2 (1.0-1.7) Lipase 51 U/L (73-393) Laboratory Tests Test 12/22/21 14:04 12/22/21 14:16 12/22/21 14:53 Urine Collection Type Unknown Urine Color (Auto) Light yellow Urine Turbidity Hazy Urine pH (Auto) 6.5 (<5.0-8.0) Urine Specific [place] 1.009 (1.000-1.030) Urine Protein (Auto) Negative mg/dL (Negative) Urine Glucose (Auto)(UA) Negative mg/dL (Negative) Urine Ketones (Auto) Negative mg/dL (Negative) Urine Blood (Auto) Negative (Negative) Urine Nitrite Negative (Negative) Urine Bilirubin (Auto) Negative (Negative) Urine Urobilinogen (Auto) Normal mg/dL (Normal) Urine Leukocyte Esterase (Auto) Negative (Negative) Urine RBC 0 /HPF (0-2) Urine WBC 0 /HPF (0-4) Urine Squamous Epithelial Cells Many /LPF Urine Amorphous Sediment Present /HPF Urine Bacteria Few /HPF (0-FEW) Urine Granular Casts Occasional /HPF Bedside Urine HCG, Qualitative Hcg negative (Negative) White Blood Count 7.7 x10^3/uL (4.0-11.0) Red Blood Count 4.23 x10^6/uL (3.50-5.40) Hemoglobin 13.9 g/dL (12.0-15.5) Hematocrit 39.9 % (36.0-47.0) Mean Corpuscular Volume 94 fL (79-100) Mean Corpuscular Hemoglobin 33 pg (25-35) Mean Corpuscular Hemoglobin Concent 35 g/dL (31-37) Red Cell Distribution Width 13.0 % (11.5-14.5) Platelet Count 258 x10^3/uL (140-400) Neutrophils (%) (Auto) 44 % (31-73) Lymphocytes (%) (Auto) 48 % (24-48) Monocytes (%) (Auto) 6 % (0-9) Eosinophils (%) (Auto) 2 % (0-3) Basophils (%) (Auto) 1 % (0-3) Neutrophils # (Auto) 3.4 x10^3/uL (1.8-7.7) Lymphocytes # (Auto) 3.7 x10^3/uL (1.0-4.8) Monocytes # (Auto) 0.4 x10^3/uL (0.0-1.1) Eosinophils # (Auto) 0.1 x10^3/uL (0.0-0.7) Basophils # (Auto) 0.0 x10^3/uL (0.0-0.2) Sodium Level 141 mmol/L (136-145) Potassium Level 3.7 mmol/L (3.5-5.1) Chloride Level 104 mmol/L (98-107) Carbon Dioxide Level 25 mmol/L (21-32) Anion Gap 12 (6-14) Blood Urea Nitrogen 6 mg/dL (7-20) Creatinine 0.8 mg/dL (0.6-1.0) Estimated GFR (Cockcroft-Gault) 83.1 BUN/Creatinine Ratio 8 (6-20) Glucose Level 82 mg/dL (70-99) Lactic Acid Level 0.8 mmol/L (0.4-2.0) Calcium Level 9.1 mg/dL (8.5-10.1) Total Bilirubin 0.3 mg/dL (0.2-1.0) Aspartate Amino Transf (AST/SGOT) 24 U/L (15-37) Alanine Aminotransferase (ALT/SGPT) 28 U/L (14-59) Alkaline Phosphatase 92 U/L (46-116) Total Protein 7.4 g/dL (6.4-8.2) Albumin 4.1 g/dL (3.4-5.0) Albumin/Globulin Ratio 1.2 (1.0-1.7) Lipase 51 U/L (73-393) VTE Prophylaxis Ordered VTE Prophylaxis Devices: Yes VTE Pharmacological Prophylaxi: No Assessment/Plan Assessment/Plan Intractable abdominal pain -not clearly due to C. difficile colitis given her recent multiple CT scans will opt for abdominal ultrasound and consult with GI if further abdominal imaging including a CT scan or MRI is indicated. I am more concerned this may be related to her chronic pain given normal laboratory values will check inflammatory markers. Nausea -likely C. difficile related versus opioid related will give IV antiemetics. C. difficile -we will continue oral vancomycin therapy if she continues to tolerate it and IV metronidazole if she cannot. Bipolar disorder -continue her home Seroquel and trazodone and as needed ODT Zyprexa if she cannot tolerate her oral medications Rheumatoid arthritis -would continue to hold her Humira given ongoing treatment for C. difficile. Fibromyalgia/chronic pain syndrome -ongoing outpatient treatment Belbuca 900 mcg twice daily tramadol 50 mg as needed twice daily, Lyrica 150 mg 3 times daily. FEN - ADAT clear liquid diet, may need NPO given her symptoms PPX - scds FULL CODE Dispo - inpatient Justifications for Admission Other Justification JACKSON PADGETT MD December 22, 2021 18:02
[2021-12-22 18:11] LABS: BARBITURATES NEG (NEG); BENZODIAZEPINES NEG (NEG); CANNABINOIDS POS (NEG); COCAINE NEG (NEG); METHADONE NEG (NEG); OPIATES POS (NEG); PHENCYCLIDINE NEG (NEG)
[2021-12-22 18:22] LABS: AMPHETAMINE/METHAMPHETAMINE NEG (NEG)
[2021-12-22] MEDS ORDERED: ACETAMINOPHEN 325 MG TABLET. PO PRN (19:15)
[2021-12-22 20:14] LABS: FECAL OB PT POSITIVE (NEG)
[2021-12-22 21:10] VITALS: BP 111/71
[2021-12-22 23:00] VITALS: BP 105/57
[2021-12-23] MEDS: VANCOMYCIN 125 MG/2.5 ML ORAL SOLUTION. PO SCH ×5 (00:02→21:07)
[2021-12-23] MEDS: HYDROmorphone 2 MG/ML INJ. IVP PRN ×2 (00:03→07:23)
[2021-12-23 03:00] VITALS: BP 101/46
[2021-12-23] MEDS: traMADol 50 MG TABLET PO PRN ×3 (03:29→16:15)
[2021-12-23 07:00] VITALS: BP 106/72
--- NOTE | 2021-12-23 08:37 | RAD ---
EXAM: Abdomen sonogram. HISTORY: Intractable pain. TECHNIQUE: Sonographic imaging of the abdomen was performed. COMPARISON: None. FINDINGS: The liver is normal in size. No focal hepatic lesion is seen. The gallbladder is unremarkab le. The common bile duct is normal in caliber. The right kidney, pancreas, and if indicated are unrem arkable. The aorta is not formally assessed. IMPRESSION: No acute sonographic finding. Electronically signed by: Marizol Villanueva MD (12/23/2021 8:35 AM) [id number]
[2021-12-23] MEDS: ONDANSETRON PF 4 MG/2 ML VIAL. IVP PRN ×2 (08:40→18:11)
[2021-12-23] MEDS ORDERED: LORA-434 PO (10:11)
[2021-12-23] MEDS ORDERED: PREG150C PO (10:12)
[2021-12-23] MEDS ORDERED: MORPHINE SULFATE 2 MG/ML INJ. IV PRN (10:15)
--- NOTE | 2021-12-23 10:15 | PDOC ---
[employer] PROGRESS NOTE Date of Service DOS: DATE: 12/23/21 TIME: 10:14 Chief Complaint Chief Complaint Intractable abdominal pain C. difficile Nausea Bipolar RA Fibromyalgia History of Present Illness History of Present Illness 12/23/2021 Patient seen and examined She just came out of the restroom with complaints of more loose stools Discussed with her Discussed with case management Discussed with RN Chart reviewed Vitals/I&O Vitals/I&O: Vital Signs Date Time Temp Pulse Resp B/P (MAP) Pulse Ox O2 Delivery O2 Flow Rate FiO2 12/23/21 09:19 100 Room Air 12/23/21 07:00 98.4 67 18 106/72 (83) 98.4 I & O 12/22/21 12/22/21 12/23/21 15:00 23:00 07:00 Intake Total 1000 ml 300 ml Balance 1000 ml 300 ml Physical Exam General: Alert, Oriented X3, Cooperative, severe distress Lungs: Clear Abdomen: Normal bowel sounds, Soft, No hepatosplenomegaly, No masses, Other (Right upper quadrant suprapubic and left lower quadrant pain on palpation and guarding) Extremities: No clubbing, No cyanosis, No edema, Normal pulses, No tenderness/swelling Skin: No rashes, No breakdown, No significant lesion Labs Labs: Laboratory Tests Test 12/22/21 14:04 12/22/21 14:16 12/22/21 14:53 12/22/21 14:54 Urine Collection Type Unknown Urine Color (Auto) Light yellow Urine Turbidity Hazy Urine pH (Auto) 6.5 (<5.0-8.0) Urine Specific [place] 1.009 (1.000-1.030) Urine Protein (Auto) Negative mg/dL (Negative) Urine Glucose (Auto)(UA) Negative mg/dL (Negative) Urine Ketones (Auto) Negative mg/dL (Negative) Urine Blood (Auto) Negative (Negative) Urine Nitrite Negative (Negative) Urine Bilirubin (Auto) Negative (Negative) Urine Urobilinogen (Auto) Normal mg/dL (Normal) Urine Leukocyte Esterase (Auto) Negative (Negative) Urine RBC 0 /HPF (0-2) Urine WBC 0 /HPF (0-4) Urine Squamous Epithelial Cells Many /LPF Urine Amorphous Sediment Present /HPF Urine Bacteria Few /HPF (0-FEW) Urine Granular Casts Occasional /HPF Bedside Urine HCG, Qualitative Hcg negative (Negative) White Blood Count 7.7 x10^3/uL (4.0-11.0) Red Blood Count 4.23 x10^6/uL (3.50-5.40) Hemoglobin 13.9 g/dL (12.0-15.5) Hematocrit 39.9 % (36.0-47.0) Mean Corpuscular Volume 94 fL (79-100) Mean Corpuscular Hemoglobin 33 pg (25-35) Mean Corpuscular Hemoglobin Concent 35 g/dL (31-37) Red Cell Distribution Width 13.0 % (11.5-14.5) Platelet Count 258 x10^3/uL (140-400) Neutrophils (%) (Auto) 44 % (31-73) Lymphocytes (%) (Auto) 48 % (24-48) Monocytes (%) (Auto) 6 % (0-9) Eosinophils (%) (Auto) 2 % (0-3) Basophils (%) (Auto) 1 % (0-3) Neutrophils # (Auto) 3.4 x10^3/uL (1.8-7.7) Lymphocytes # (Auto) 3.7 x10^3/uL (1.0-4.8) Monocytes # (Auto) 0.4 x10^3/uL (0.0-1.1) Eosinophils # (Auto) 0.1 x10^3/uL (0.0-0.7) Basophils # (Auto) 0.0 x10^3/uL (0.0-0.2) Erythrocyte Sedimentation Rate 4 (0-25) Sodium Level 141 mmol/L (136-145) Potassium Level 3.7 mmol/L (3.5-5.1) Chloride Level 104 mmol/L (98-107) Carbon Dioxide Level 25 mmol/L (21-32) Anion Gap 12 (6-14) Blood Urea Nitrogen 6 mg/dL (7-20) Creatinine 0.8 mg/dL (0.6-1.0) Estimated GFR (Cockcroft-Gault) 83.1 BUN/Creatinine Ratio 8 (6-20) Glucose Level 82 mg/dL (70-99) Lactic Acid Level 0.8 mmol/L (0.4-2.0) Calcium Level 9.1 mg/dL (8.5-10.1) Total Bilirubin 0.3 mg/dL (0.2-1.0) Aspartate Amino Transf (AST/SGOT) 24 U/L (15-37) Alanine Aminotransferase (ALT/SGPT) 28 U/L (14-59) Alkaline Phosphatase 92 U/L (46-116) C-Reactive Protein, Quantitative 2.3 mg/L (0-3.3) Total Protein 7.4 g/dL (6.4-8.2) Albumin 4.1 g/dL (3.4-5.0) Albumin/Globulin Ratio 1.2 (1.0-1.7) Lipase 51 U/L (73-393) Urine Opiates Screen Pos (NEG) Urine Methadone Screen Neg (NEG) Urine Barbiturates Neg (NEG) Urine Phencyclidine Screen Neg (NEG) Urine Amphetamine/Methamphetamine Neg (NEG) Urine Benzodiazepines Screen Neg (NEG) Urine Cocaine Screen Neg (NEG) Urine Cannabinoids Screen Pos (NEG) Urine Ethyl Alcohol Neg (NEG) Test 12/22/21 19:55 Stool Occult Blood Positive (NEG) Assessment and Plan Assessmemt and Plan Problems Medical Problems: (1) Abdominal pain Status: Acute (2) Diarrhea Status: Acute (3) History of Clostridioides difficile colitis Status: Acute Intractable abdominal pain -not clearly due to C. difficile colitis given her recent multiple CT scans will opt for abdominal ultrasound and consult with GI if further abdominal imaging including a CT scan or MRI is indicated. I am more concerned this may be related to her chronic pain given normal laboratory values will check inflammatory markers. Nausea -likely C. difficile related versus opioid related will give IV antiemetics. C. difficile -we will continue oral vancomycin therapy if she continues to tolerate it and IV metronidazole if she cannot. Bipolar disorder -continue her home Seroquel and trazodone and as needed ODT Zyprexa if she cannot tolerate her oral medications Rheumatoid arthritis -would continue to hold her Humira given ongoing treatment for C. difficile. Fibromyalgia/chronic pain syndrome -ongoing outpatient treatment Belbuca 900 mcg twice daily tramadol 50 mg as needed twice daily, Lyrica 150 mg 3 times daily. I changed her Dilaudid to morphine per her request Trend labs Encourage p.o. intake Home meds DVT prophylaxis Full code Await GI input FEN - ADAT clear liquid diet, may need NPO given her symptoms PPX - scds FULL CODE Dispo - inpatient Comment Review of Relevant I have reviewed the following items nixon (where applicable) has been applied. Medications: Current Medications Medications (Trade) Dose Ordered Sig/Hannah Route PRN Reason Start Time Stop Time Status Last Admin Dose Admin Ringer's Solution 1,000 ml @ 1,000 mls/hr 1X ONCE IV 12/22/21 14:15 12/22/21 15:14 DC 12/22/21 14:58 Prochlorperazine Edisylate (Compazine) 10 mg 1X ONCE IV 12/22/21 14:45 12/22/21 14:46 DC 12/22/21 15:03 Morphine Sulfate (Morphine Sulfate) 2 mg 1X ONCE IVP 12/22/21 14:45 12/22/21 14:46 DC 12/22/21 15:05 Tramadol HCl (Ultram) 50 mg 1X ONCE PO 12/22/21 17:00 12/22/21 17:01 DC 12/22/21 17:05 Hydromorphone HCl (Dilaudid) 0.5 mg 1X ONCE IVP 12/22/21 17:45 12/22/21 17:46 DC 12/22/21 17:55 Ondansetron HCl (Zofran) 4 mg PRN Q4HRS PRN IVP NAUSEA/VOMITING 12/22/21 19:15 12/23/21 08:40 Hydromorphone HCl (Dilaudid) 0.5 mg PRN Q3HRS PRN IVP SEVERE PAIN 7-10 12/22/21 19:15 12/23/21 07:23 Olanzapine (ZyPREXA ZYDIS) 5 mg PRN BID PRN PO ANXIETY / AGITATION 12/22/21 19:15 12/23/21 08:40 Vancomycin HCl (Vancomycin Oral Solution) 125 mg [id number] PO 12/22/21 21:00 12/23/21 08:37 Tramadol HCl (Ultram) 50 mg PRN Q6HRS PRN PO PAIN 12/22/21 19:30 12/23/21 08:37 Justifications for Admission Other Justification ISAIAS GUIDRY III DO December 23, 2021 10:15
[2021-12-23] MEDS ORDERED: LEVO50TA5 PO (10:16)
[2021-12-23] MEDS ORDERED: traMADol 50 MG TABLET PO PRN (10:45)
[2021-12-23] MEDS ORDERED: tiZANidine 4 MG TABLET. PO PRN (10:45)
[2021-12-23] MEDS ORDERED: chlordiazePOXIDE HCL 25 MG CAPSULE PO PRN (10:45)
[2021-12-23] MEDS: MORPHINE SULFATE 2 MG/ML INJ. IV PRN ×4 (10:49→21:11)
[2021-12-23 11:00] VITALS: BP 125/79
[2021-12-23] MEDS ORDERED: METOPROLOL TART IMMED RELEASE 25 MG TABLET. PO SCH (11:00)
[2021-12-23] MEDS ORDERED: PHENAZOPYRIDINE 200 MG TABLET. PO PRN (11:00)
[2021-12-23] MEDS: LEVOTHYROXINE 50 MCG TABLET PO SCH (11:00)
[2021-12-23] MEDS: clonazePAM 0.5 MG TABLET PO SCH ×2 (11:00→21:07)
[2021-12-23] MEDS ORDERED: TRAZ-123 PO (11:04)
[2021-12-23] MEDS: QUEtiapine 25 MG TABLET. PO SCH ×2 (12:00→18:57)
[2021-12-23] MEDS: PREGABALIN 75 MG CAPSULE PO SCH ×3 (12:24→21:07)
[2021-12-23] MEDS ORDERED: SULF1TAB24 PO (12:25)
[2021-12-23] MEDS ORDERED: clonazePAM 0.5 MG TABLET PO SCH (14:00)
--- NOTE | 2021-12-23 14:03 | PDOC2 ---
GI CONSULT Date of Service: DATE: 12/23/21 TIME: 13:45 Reason For Consult: abd pain h/o C Diff HPI: HPI: 31 y/o female admitted through ER. Ill x 5 weeks. Began with diarrhea without precipitating events. Associated w/ lower abdominal pain/cramping that is fairly constant and worse with eating. Diagnosed w/ C Diff at Urgent Care and has been on vanco QID for about 9 days. Diarrhea is worse. 7-8 watery stools daily, not during the night. No hematochezia or melena. Has nausea w/o vomiting. No reflux/heartburn or dysphagia. Weight fluctuates. Prior to this, no issues w/ diarrhea. Usually takes stool softeners for hard stools/constipation. No previous EGD or colonoscopy. No GB, liver, pancreas, or PUD history. Recent treatment for UTI (after diarrhea started). No NSAIDs. RA on Humira - skipped dose on Tu per advice of head of marketing. Chronic pain in hands, hips, knees, neck, and back - sees pain management, on Belbuca x 1 month and Tramadol. PMH: PMH: schizophrenia, OCD, bipolar, anxiety, depression, fibromyalgia, RA, recurrent UTIs , tonsillectomy FH: Family History: Other (adopted) Social History: Smoke: <1 pack per day ALCOHOL: other (heavy in past per encoutner in 2019 - she denies now) Drugs: Marijuana (she denies THC, says she uses CBD) ROS: GEN: Denies fevers, chills, sweats HEENT: Denies blurred vision, sore throat CV: Denies chest pain RESP: Denies shortness of air, cough GI: Per HPI : Denies hematuria, dysuria ENDO: Denies weight changes NEURO: Denies confusion, dizziness MSK: chronic pain SKIN: Denies jaundice, pruritus Vitals: Vitals: Vital Signs Date Time Temp Pulse Resp B/P (MAP) Pulse Ox O2 Delivery O2 Flow Rate FiO2 12/23/21 13:43 98 Room Air 12/23/21 11:00 98.3 66 18 125/79 (94) 98.3 Labs: Labs: Laboratory Tests Test 12/22/21 14:04 12/22/21 14:16 12/22/21 14:53 12/22/21 14:54 Urine Collection Type Unknown Urine Color (Auto) Light yellow Urine Turbidity Hazy Urine pH (Auto) 6.5 (<5.0-8.0) Urine Specific [place] 1.009 (1.000-1.030) Urine Protein (Auto) Negative mg/dL (Negative) Urine Glucose (Auto)(UA) Negative mg/dL (Negative) Urine Ketones (Auto) Negative mg/dL (Negative) Urine Blood (Auto) Negative (Negative) Urine Nitrite Negative (Negative) Urine Bilirubin (Auto) Negative (Negative) Urine Urobilinogen (Auto) Normal mg/dL (Normal) Urine Leukocyte Esterase (Auto) Negative (Negative) Urine RBC 0 /HPF (0-2) Urine WBC 0 /HPF (0-4) Urine Squamous Epithelial Cells Many /LPF Urine Amorphous Sediment Present /HPF Urine Bacteria Few /HPF (0-FEW) Urine Granular Casts Occasional /HPF Bedside Urine HCG, Qualitative Hcg negative (Negative) White Blood Count 7.7 x10^3/uL (4.0-11.0) Red Blood Count 4.23 x10^6/uL (3.50-5.40) Hemoglobin 13.9 g/dL (12.0-15.5) Hematocrit 39.9 % (36.0-47.0) Mean Corpuscular Volume 94 fL (79-100) Mean Corpuscular Hemoglobin 33 pg (25-35) Mean Corpuscular Hemoglobin Concent 35 g/dL (31-37) Red Cell Distribution Width 13.0 % (11.5-14.5) Platelet Count 258 x10^3/uL (140-400) Neutrophils (%) (Auto) 44 % (31-73) Lymphocytes (%) (Auto) 48 % (24-48) Monocytes (%) (Auto) 6 % (0-9) Eosinophils (%) (Auto) 2 % (0-3) Basophils (%) (Auto) 1 % (0-3) Neutrophils # (Auto) 3.4 x10^3/uL (1.8-7.7) Lymphocytes # (Auto) 3.7 x10^3/uL (1.0-4.8) Monocytes # (Auto) 0.4 x10^3/uL (0.0-1.1) Eosinophils # (Auto) 0.1 x10^3/uL (0.0-0.7) Basophils # (Auto) 0.0 x10^3/uL (0.0-0.2) Erythrocyte Sedimentation Rate 4 (0-25) Sodium Level 141 mmol/L (136-145) Potassium Level 3.7 mmol/L (3.5-5.1) Chloride Level 104 mmol/L (98-107) Carbon Dioxide Level 25 mmol/L (21-32) Anion Gap 12 (6-14) Blood Urea Nitrogen 6 mg/dL (7-20) Creatinine 0.8 mg/dL (0.6-1.0) Estimated GFR (Cockcroft-Gault) 83.1 BUN/Creatinine Ratio 8 (6-20) Glucose Level 82 mg/dL (70-99) Lactic Acid Level 0.8 mmol/L (0.4-2.0) Calcium Level 9.1 mg/dL (8.5-10.1) Total Bilirubin 0.3 mg/dL (0.2-1.0) Aspartate Amino Transf (AST/SGOT) 24 U/L (15-37) Alanine Aminotransferase (ALT/SGPT) 28 U/L (14-59) Alkaline Phosphatase 92 U/L (46-116) C-Reactive Protein, Quantitative 2.3 mg/L (0-3.3) Total Protein 7.4 g/dL (6.4-8.2) Albumin 4.1 g/dL (3.4-5.0) Albumin/Globulin Ratio 1.2 (1.0-1.7) Lipase 51 U/L (73-393) Urine Opiates Screen Pos (NEG) Urine Methadone Screen Neg (NEG) Urine Barbiturates Neg (NEG) Urine Phencyclidine Screen Neg (NEG) Urine Amphetamine/Methamphetamine Neg (NEG) Urine Benzodiazepines Screen Neg (NEG) Urine Cocaine Screen Neg (NEG) Urine Cannabinoids Screen Pos (NEG) Urine Ethyl Alcohol Neg (NEG) Test 12/22/21 19:55 Stool Occult Blood Positive (NEG) FECAL WBC,GRAM STAIN Final WBCS NONE PRESENT Allergies: Coded Allergies: Corticosteroids (Glucocorticoids) (Verified Allergy, Intermediate, 12/22/21) NSAIDS (Non-Steroidal Anti-Inflamma (Verified Allergy, Intermediate, 12/22) Medications: Current Medications Medications (Trade) Dose Ordered Sig/Hannah Route PRN Reason Start Time Stop Time Status Last Admin Dose Admin Ringer's Solution 1,000 ml @ 1,000 mls/hr 1X ONCE IV 12/22/21 14:15 12/22/21 15:14 DC 12/22/21 14:58 Prochlorperazine Edisylate (Compazine) 10 mg 1X ONCE IV 12/22/21 14:45 12/22/21 14:46 DC 12/22/21 15:03 Morphine Sulfate (Morphine Sulfate) 2 mg 1X ONCE IVP 12/22/21 14:45 12/22/21 14:46 DC 12/22/21 15:05 Tramadol HCl (Ultram) 50 mg 1X ONCE PO 12/22/21 17:00 12/22/21 17:01 DC 12/22/21 17:05 Hydromorphone HCl (Dilaudid) 0.5 mg 1X ONCE IVP 12/22/21 17:45 12/23/21 10:38 DC 12/22/21 17:55 Ondansetron HCl (Zofran) 4 mg PRN Q4HRS PRN IVP NAUSEA/VOMITING 12/22/21 19:15 12/23/21 08:40 Hydromorphone HCl (Dilaudid) 0.5 mg PRN Q3HRS PRN IVP SEVERE PAIN 7-10 12/22/21 19:15 12/23/21 10:33 DC 12/23/21 07:23 Olanzapine (ZyPREXA ZYDIS) 5 mg PRN BID PRN PO ANXIETY / AGITATION 12/22/21 19:15 12/23/21 08:40 Vancomycin HCl (Vancomycin Oral Solution) 125 mg [id number] PO 12/22/21 21:00 12/23/21 12:24 Tramadol HCl (Ultram) 50 mg PRN Q6HRS PRN PO MODERATE-SEVERE PAIN 12/22/21 19:30 12/23/21 08:37 Pregabalin (Lyrica) 150 mg QID PO 12/23/21 13:00 12/23/21 12:24 Morphine Sulfate (Morphine Sulfate) 2 mg PRN Q3HRS PRN IV PAIN 12/23/21 10:45 12/23/21 13:43 Imaging: Imaging: RUQ US 12/22 IMPRESSION: No acute sonographic finding. CT A/P 5/6 IMPRESSION: Small hypodense lesions in the right ovary probably representing small cysts. Small cysts in the left kidney. Moderate amount of fecal material in colon. No other focal abnormality seen in the abdomen or pelvis. PE: GEN: NAD HEENT: Atraumatic, PERRL LUNGS: CTAB HEART: RRR ABD: NABS, S/ND, mild discomfort across lower abdomen w/ light palpation EXTREMITY: No edema SKIN: No rashes, no jaundice NEURO/PSYCH: A & O 3 A/P: A/P: Diarrhea, h/o C Diff - on vanco Lower abd pain, nausea +Hemoccult Recent UTI Chronic pain, RA on Humira -- Will review w/ Dr. Baker. DAGMAR CARRASCO December 23, 2021 14:03
[2021-12-23 15:00] VITALS: BP 118/78
[2021-12-23] MEDS ORDERED: HYOSCYAMINE ER 0.375 MG TAB.ER.12H PO PRN (15:00)
[2021-12-23 19:00] VITALS: BP 107/63
[2021-12-23] MEDS ORDERED: QUEtiapine 100 MG TABLET. PO SCH ×2 (21:00)
[2021-12-23 23:00] VITALS: BP 102/70
[2021-12-24] MEDS: MORPHINE SULFATE 2 MG/ML INJ. IV PRN ×3 (01:18→08:37)
[2021-12-24 03:00] VITALS: BP 101/58
[2021-12-24] MEDS: LEVOTHYROXINE 50 MCG TABLET PO SCH (06:16)
[2021-12-24 07:00] VITALS: BP 111/73
[2021-12-24] MEDS: QUEtiapine 25 MG TABLET. PO SCH (08:35)
[2021-12-24] MEDS: clonazePAM 0.5 MG TABLET PO SCH (08:36)
[2021-12-24] MEDS: traMADol 50 MG TABLET PO PRN (08:36)
[2021-12-24] MEDS: PREGABALIN 75 MG CAPSULE PO SCH (08:36)
[2021-12-24] MEDS: VANCOMYCIN 125 MG/2.5 ML ORAL SOLUTION. PO SCH (08:42)
--- NOTE | 2021-12-24 14:40 | DS ---
DATE OF DISCHARGE: 12/24/2021 ADMITTING DIAGNOSES: Abdominal pain, history of C. diff, bipolar, RA, fibromyalgia. DISCHARGE DIAGNOSES: Resolving abdominal pain. CONSULTS: GI. HOSPITAL COURSE: The patient is a pleasant, middle-aged female who has a history of C. diff, and presented with abdominal pain and some loose stools. We admitted her, consulted GI. Her C. diff came back negative. We gave her fluids and advanced her diet. Today, she is doing well and wants to go home. We plan to discharge. DISPOSITION: Home. ACTIVITY: As tolerated. DIET: Low sodium. MEDICATIONS: Please see the MRAD. TOTAL TIME: 34 minutes. JASON/ASHLEE DR: Caio TID: [id number]
== END 2021-12-24 10:50 | disposition home or self-care (01) | DRG 392 ==
LOC: ER 13:37 → ED HOLD 19:00 → 4 NORTH 21:05
PROVIDERS: ADMIT Internal Medicine; ATTEND Internal Medicine
DX: R10.9 Unspecified abdominal pain (principal); N39.0 Urinary tract infection, site not specified; G89.4 Chronic pain syndrome; M79.7 Fibromyalgia; Z88.8 Allergy status to other drugs, medicaments and biological substances; F17.210 Nicotine dependence, cigarettes, uncomplicated; F20.9 Schizophrenia, unspecified; F31.9 Bipolar disorder, unspecified; F41.9 Anxiety disorder, unspecified; F42.9 Obsessive-compulsive disorder, unspecified; I34.0 Nonrheumatic mitral (valve) insufficiency; K59.00 Constipation, unspecified; M06.9 Rheumatoid arthritis, unspecified; Z79.899 Other long term (current) drug therapy; Z87.440 Personal history of urinary (tract) infections; M19.90 Unspecified osteoarthritis, unspecified site
CPT/HCPCS: 36415; 76705; 80053; 80307; 81001; 81025; 82274; 83605; 83690; 85025; 85651; 86140; 87205; 87493; 96361; 96374; 96375; J0780; J1170; J2270; J2405; J7120; 99285-25; G0378